=== PATIENT | male | born 1955 | race Caucasian/White ===

== ENCOUNTER 2018-04-02 09:26 | Inpatient (IN) | payer MEDICAID ==
[~2018-04-02] VITALS: Ht 172.7 cm; Wt 77.3 kg
[2018-04-02] MEDS ORDERED: NORVASC10 MG PO (09:31)
[2018-04-02] MEDS ORDERED: ZIAC 10-6.25 MG1 TAB PO (09:32)
[2018-04-02] MEDS ORDERED: CATAPRES0.2 MG PO (09:33)
--- NOTE | 2018-04-02 09:38 | NUR ---
PATIENT STATES HE TOOK HIS HTN MEDICATION @ 0800 THIS AM INSURANCE EXAMINER.
[2018-04-02 10:54] VITALS: BP 198/118
[2018-04-02 11:23] LABS: HEMATOCRIT 39.5 % (42.0-54.0); HEMOGLOBIN 13.8 g/dL (13.5-17.5); MCHC 34.9 g/dL (31.0-37.0); MCV 85.9 fL (80.0-100.0); MEAN PLATELET VOLUME 10.8 fL (7.4-10.4); PLATELET COUNT 316 10x3/uL (130-400); RDW 14.2 % (11.5-14.5); WBC 20.9 10x3/uL (4.8-10.8)
[2018-04-02 11:47] LABS: LYMPHOCYTES 8 % (15-50); MONOCYTES 16 % (2-11); NEUTROPHILS 75 % (40-80); PLATELET ESTIMATE NORMAL
[2018-04-02 11:48] LABS: HYPOCHROMASIA OCC; ROULEAUX OCC
[2018-04-02 12:05] LABS: ALBUMIN 2.9 g/dL (3.4-5.0); ANION GAP 12.9 mmol/L (8-16); BILIRUBIN - TOTAL 0.39 mg/dL (0.2-1.3); C-REACTIVE PROTEIN 7.9 mg/dL (0.0-0.9); CALCIUM 8.4 mg/dL (8.5-10.1); CARBON DIOXIDE 24.3 mmol/L (21.0-32.0); CREATININE - SERUM 1.1 mg/dL (0.6-1.3); POTASSIUM - SERUM 3.2 mmol/L (3.5-5.1); PROTEIN - SERUM 7.4 g/dL (6.4-8.2)
--- NOTE | 2018-04-02 12:16 | NUR ---
DIET TRAY AND SODA GIVEN. UNABLE TO ATTAIN IV ACCESS AT THIS TIME. WILL CONTINUE TO TRY.
[2018-04-02 13:12] LABS: UDS - AMPHET POSITIVE QUAL (NEGATIVE); UDS - BARB NEGATIVE QUAL (NEGATIVE); UDS - BENZO NEGATIVE QUAL (NEGATIVE); UDS - COCAINE NEGATIVE QUAL (NEGATIVE); UDS - OPIATE POSITIVE QUAL (NEGATIVE); UDS - PCP NEGATIVE QUAL (NEGATIVE); UDS - THC NEGATIVE QUAL (NEGATIVE)
--- NOTE | 2018-04-02 13:20 | NUR ---
PATIENT GIVEN MILK AND BLANKETS. NO NEEDS NOTED.
[2018-04-02 13:28] VITALS: BP 153/88
[2018-04-02 13:46] LABS: APPEARANCE CLEAR (CLEAR); BILIRUBIN NEGATIVE (NEGATIVE); COLOR YELLOW (YELLOW); EPITHELIAL CELLS OCC /hpf (0-5); GLUCOSE 250 mg/dL (NEGATIVE); KETONE NEGATIVE (NEGATIVE); NITRITE NEGATIVE (NEGATIVE); PROTEIN 1+ mg/dL (NEGATIVE); RED CELLS - URINE RARE /hpf (0-5)
[2018-04-02 13:47] LABS: BACTERIA FEW /hpf (NONE SEEN)
[2018-04-02 14:58] VITALS: BP 119/73
--- NOTE | 2018-04-02 15:20 | NUR ---
PT ARRIVED TO UNIT VIA WHEELCHAIR. PT CURRENTLY HAS NO IV DUE TO NO ONE BEING ABLE TO OBTAIN ACCESS. SX CONSULT PLACED FOR DR MENG. WILL FOLLOW UP.
[2018-04-02 16:52] VITALS: BP 151/99
[2018-04-02 17:28] VITALS: BMI 25.1
--- NOTE | 2018-04-02 18:44 | NUR ---
PT RESTING IN BED, EYES OPEN. NO C/O PAIN. NO S/S OF ACUTE DISTRESS NOTED. PT DENIES ANYTHING FURTHER AT THIS TIME. CALL LIGHT IN REACH. WILL CONTINUE TO MONITOR.
[2018-04-02 19:00] VITALS: BP 164/93
[2018-04-03] VITALS: BP 118/67
--- NOTE | 2018-04-03 01:12 | NUR ---
RECIEVED UP IN BED WITH EYES OPEN. OFF GOING REPORTED HE NEEDED AND IV. WHEN LOOKING AT HIS ARM HE STATED "YOUR NOT GOING TO TOUCHME WITH NO IV. THEY TRIED 6 TIMES IN ER." REPORTED THAT DR. MENG WILL DO CVL. WILL CONT POC.
[2018-04-03 03:00] VITALS: BP 117/72
[2018-04-03 09:37] VITALS: BP 124/75
--- NOTE | 2018-04-03 10:19 | NUR ---
PATIENT GAVE NUMBER OF HIS GIRLFRIEND TO BE CALLED, [phone], ATTEMPTED TO CALL NUMBER AND NUMBER IS BUSY.
--- NOTE | 2018-04-03 10:21 | NUR ---
SPOKE WITH DR. NELSON ABOUT PT REQUEST TO EITHER BE TRANSFERRED OUT TO ANOTHER HOSPITAL OR HE WANTS TO GO AMA. DR. NELSON STRONGLY ADVISES AGANIST LEAVING. CALLED DR. MENG ABOUT PENDING CVL PLACEMENT, HE HAS BEEN IN SURGERY ALL MORNING AND WILL PLACE CVL SOON POSSIBLE. PT IS AWARE AND IS STILL DISPLEASED WITH CARE. ENCOURAGED PT TO ALLOW ME TO DRESS HIS WOUND ON HIS LOWER LEG D/T LEAKAGE AND HE REFUSES. BED LOWERED AND LOCKED, CALL LIGHT WITHIN REACH.
--- NOTE | 2018-04-03 11:35 | NUR ---
CVL PLACED BY DR. MENG, BANANA BAG INFUSING WELL INITATION OF HEALTH AND SAFETY TRAINER MORPHINE. 2MG BOLUS GIVEN PER ORDER. DENIES ANY OTHER NEEDS OR DISCOMFORTS, BED LOWERED AND LOCKED, CALL LIGHT WITHIN REACH. CPOC
[2018-04-03 13:00] VITALS: BP 117/72
--- NOTE | 2018-04-03 13:00 | NUR ---
PLACED ON CONTACT ISOLATION FOR POSITIVE MRSA OF LEG WOUND.
[2018-04-03 15:12] VITALS: BP 117/72
[2018-04-03 19:00] VITALS: BP 163/94
--- NOTE | 2018-04-03 20:36 | NUR ---
PATIENT RESTING IN BED WITH NO S/S OF DISTRESS. ADMINISTERED MEDS PER ORDERS. PATIENT DENIES OTHER NEEDS AT THIS TIME. BED IN LOWEST POSITION AND CALL LIGHT WITHIN REACH. ENCOURAGED THE PATIENT TO CALL IF HE HAS NEEDS.
[2018-04-04] VITALS: BP 120/58
[2018-04-04 03:00] VITALS: BP 108/65
[2018-04-04 08:00] VITALS: BP 126/82
--- NOTE | 2018-04-04 08:00 | NUR ---
PT AOX4 RESP EVEN AND NONLABORED PT DENIES NEEDS AT THIS TIME IV TO RIGHT SUBCLAVIAN PATENT AND INTACT AT THIS TIME SRX2 BED AT LOWEST SETTING CALL LIGHT WITHIN REACH WILL CONTINUE TO MONITOR
[2018-04-04 10:09] LABS: BASOPHILS 0.2 % (0-2); EOSINOPHILS 1.7 % (0-7); HEMATOCRIT 32.2 % (42.0-54.0); IMMATURE GRANULOCYTES 0.3 % (0-5); LYMPHOCYTES 13.7 % (15-50); MCH 29.3 pg (26.0-34.0); MCHC 33.5 g/dL (31.0-37.0); MCV 87.3 fL (80.0-100.0); MEAN PLATELET VOLUME 11.6 fL (7.4-10.4); MONOCYTES 12.1 % (2-11); PLATELET COUNT 257 10x3/uL (130-400); RBC 3.69 10x6/uL (4.20-6.10); RDW 14.5 % (11.5-14.5)
[2018-04-04 10:25] LABS: HEMOGLOBIN 10.8 g/dL (13.5-17.5); WBC 9.1 10x3/uL (4.8-10.8)
[2018-04-04 10:44] LABS: ANION GAP 10.9 mmol/L (8-16); BILIRUBIN - TOTAL 0.13 mg/dL (0.2-1.3); CREATININE - SERUM 1.2 mg/dL (0.6-1.3); POTASSIUM - SERUM 3.9 mmol/L (3.5-5.1); PROTEIN - SERUM 5.9 g/dL (6.4-8.2)
[2018-04-04 12:00] VITALS: BP 121/82
[2018-04-04 13:08] LABS: % SATURATION 4 % (15-55); IRON 10 ug/dl (35-150); TOTAL IRON BIND CAPACITY 227 ug/dl (260-445); UNSAT IRON BIND CAPACITY 217 ug/dl (150-375)
[2018-04-04 16:00] VITALS: BP 134/83
[2018-04-04 20:00] VITALS: BP 123/84
--- NOTE | 2018-04-04 20:51 | NUR ---
SPOKE WITH DR. FLORES IN REGARDS TO PATIENT AND CONSULT. NOTIFIED DR. FLORES OF URGENT CONSULT PER DR AUGUSTINE AND THAT MRI WILL BE IN AT APROX 2129. ALSO REVIEWED VITALS AND SOME LABS.
[2018-04-05] VITALS (7 sets, daily range): BP systolic 104–139; BP diastolic 55–84
--- NOTE | 2018-04-05 06:00 | NUR ---
SPOKE WITH LUISA IN REGARDS TO PATIENT'S PAIN NOT BEING CONTROLLED. DISCUSSED OPTIONS WITH LUISA AND DECIDED ON DILAUDID CABLE COVERER FOR THE PATIENT. WHEN I ENTERED THE ROOM TO SET UP THE PATIENT'S CABLE COVERER, HE REFUSED AND STATED HIS PAIN MEDS WERE FINE THE WAY THAT THEY WERE. HE STATED THE I WAS JUST TRYING TO MAKE THINGS EASIER ON MYSELF. I EXPLAINED TO THE PATIENT THAT HE HAS CALLED MULTIPLE TIMES BEFORE HIS PAIN MED WAS DUE AND THAT IT MIGHT BE MORE EFFECTIVE IF HE REC'D A SMALLER DOSE OF PAIN MEDIATION EVERY 10 MINS RATHER THAN AN IV PUSH EVERY 4 HOURS. HE PROCEEDED TO TELL ME THAT I HAVE NOT GIVEN HIM PAIN MEDICATION ALL NIGHT LONG. I EXPLAINED TO THE PATIENT THAT HIS LAST DOSE OF DILAUDID WAS AT 0424 AND HIS LAST DOSE OF PERCOCET WAS AT 0522 THIS MORNING. THE PATIENT STATED "SHOW ME THE BANDAID ON MY BUTT IF YOU GAVE ME MY SHOT". I EXPLAINED TO THE PATIENT THAT HIS IV DILAUDID WAS GIVEN THROUGH HIS IV. THE PATIENT STATED THAT HE DID NOT HAVE HIS PAIN MEDICATION AND I CAN DO WHATEVER I WANT. I ATTEMPTED AGAIN TO EXPLAIN THE PATIENT'S OPTIONS TO HIM AND HE INTERUPTED ME AND TOLD ME TO DO WHATEVER I WANTED. ELMIRA SLOAN WAS AT BEDSIDE CHECKING THE PATIENT'S VITALS WHEN I ADMINISTERED THE 0424 DOSE OF DILAUDID.
[2018-04-05 06:37] LABS: BASOPHILS 0.3 % (0-2); EOSINOPHILS 1.8 % (0-7); HEMATOCRIT 33.4 % (42.0-54.0); HEMOGLOBIN 11.2 g/dL (13.5-17.5); IMMATURE GRANULOCYTES 0.4 % (0-5); LYMPHOCYTES 14.1 % (15-50); MCH 29.3 pg (26.0-34.0); MCHC 33.5 g/dL (31.0-37.0); MCV 87.4 fL (80.0-100.0); MEAN PLATELET VOLUME 11.3 fL (7.4-10.4); MONOCYTES 9.6 % (2-11); NEUTROPHILS 73.8 % (40-80); PLATELET COUNT 266 10x3/uL (130-400); RBC 3.82 10x6/uL (4.20-6.10); RDW 14.7 % (11.5-14.5); WBC 11.1 10x3/uL (4.8-10.8)
[2018-04-05 07:39] LABS: ALBUMIN 2.1 g/dL (3.4-5.0); ANION GAP 11.3 mmol/L (8-16); BILIRUBIN - TOTAL 0.15 mg/dL (0.2-1.3); CALCIUM 7.7 mg/dL (8.5-10.1); CARBON DIOXIDE 27.5 mmol/L (21.0-32.0); CREATININE - SERUM 1.3 mg/dL (0.6-1.3); POTASSIUM - SERUM 3.8 mmol/L (3.5-5.1); PROTEIN - SERUM 5.9 g/dL (6.4-8.2)
--- NOTE | 2018-04-05 07:53 | NUR ---
THE PATIENT IS ON ELECTROLYTE PROTOCOL, THE POTASSIUM IS WNL THIS MORNING. THE MAG AND PHOS HAVE NOT BEEN ORDERED/MONITORED THIS VIST
--- NOTE | 2018-04-05 09:52 | NUR ---
BARBARA IS RESTING WITH EYES CLOSED, SNORING. HOB UP AT 30 DEGREES. APPEARS TO BE PAINFREE. TAMICA GOODEN APN WAS IN TO SEE BARBARA AND MADE HIM NPO AT THIS TIME UNTIL SHE TALKS WITH DR FLORES. RIGHT LOWER LEG WITH ANGRY LOOKING OPEN WOUND TO CABRERA AREA. DRAINING FLUID. PATIENT IS IN ISOLATION.
--- NOTE | 2018-04-05 11:13 | NUR ---
CALLED AND SPOKE TO LUISA NURSE WITH DR AUGUSTINE. INFORMED HER OF THE MEDICATION BOTTLE THE PATIENT FELL ASLEEP HOLDING AND THE OTHER BOTTLE IN THE PATIENTS NIGHTSTAND OPENED DRAWER. THE BOTTLE PATIENT WAS HOLDING WAS BLUE AND LABELED BISOPROL FUM 10 MG WITH 12 WHITE PILLS INSIDE, THE OTHER WHITE BOTTLE HAS 2 ROUND, PINK PILLS INSIDE, THE BOTTLE IS LABELED PAIN RELIEVER, ACETAMINOPHEN. BRENDA, FROM THE PHARMACY IS TAKING THE MEDICATION BOTTLES TO THE PHARMACY. . CHARGE NURSE, KIRIT WAS NOTIFIED.
--- NOTE | 2018-04-05 11:34 | NUR ---
CALLED AND SPOKE WITH EDD IN THE PHARMACY, REQUESTING THE ZIAC THAT WAS DUE AT 0900
--- NOTE | 2018-04-05 11:56 | OP ---
PATIENT NAME: KELLI WARE MEDICAL RECORD: [id number] :59 LOCATION:D.M3 D.1204 ADMISSION DATE:04/02/18 SURGEON: BEAU MENG MD DATE OF OPERATION: 04/03/2018 PREOPERATIVE DIAGNOSES: 1. Need for IV access. 2. Right lower extremity cellulitis. 3. Chronic alcohol abuse. 4. Nicotine dependence. 5. Hypertension. POSTOPERATIVE DIAGNOSES: 1. Need for IV access. 2. Right lower extremity cellulitis. 3. Chronic alcohol abuse. 4. Nicotine dependence. 5. Hypertension. PROCEDURE: Right subclavian vein triple lumen central venous line placement. SURGEON: Beau Meng MD REPORT OF PROCEDURE: The patient's right chest was prepped and draped in sterile fashion. A total of 5 cc of 1% lidocaine was infused into the subcutaneous tissues. A needle was used to cannulate the right subclavian vein and a guidewire was advanced with ease. Over this wire, dilator was placed followed by the triple lumen catheter. The catheter aspirated nonpulsatile dark blood and flushed easily in all 3 ports. This was sutured into place with 3-0 silk ties and dressed appropriately. COMPLICATIONS: None. CONDITION: Stable. ANESTHESIA: Local. BLOOD LOSS: Minimal. TRANSINT:[id number] Voice Confirmation ID: [id number] DOCUMENT ID: [id number] BEAU MENG MD at 1156 CC: [id number] DICTATION DATE: 04/03/18 1113 CREDIT RISK REVIEW OFFICER: 04/03/18 1343 ADM IN [place] [id number] [place] [address]
--- NOTE | 2018-04-05 13:29 | EC ---
PATIENT:KELLI WARE DATE OF SERVICE: 04/02/18 SEX: M MEDICAL RECORD: [id number] DATE OF : [birth year] LOCATION:D.M3 D.120 AGE OF PATIENT: 63 ADMISSION DATE: 04/02/18 REFERRING PHYSICIAN: INTERPRETING PHYSICIAN: MALA HERBERT MD ECHOCARDIOGRAM REPORT ECHO CHARGES 4 ECHO COMPLETE Date: 04/04/18 CLINICAL DIAGNOSIS: IV DRUG USE - R/O VEGETATION ECHOCARDIOGRAPHIC MEASUREMENTS (adult normal given) AC root (d.<3.7cm) 3.3 cm LV Septum d (<1.2 cm> 1.4 cm Valve Excursion 1.8 cm LV Septum (systole) 2.1 cm Left Atria (s.<4.0cm> 4.6 cm LVPW d(<1.2cm) 1.4 cm RV (d.<2.3cm) 2.7 cm LVPW (sytole) 2.2 cm LV diastole(<5.6CM) 5.5 cm MV E-F(>70mm/sec) cm LV systole 3.4 cm LVOT Diameter 2.0 cm MV exc.(>10mm) cm Est.ejection fraction (50-75%) % DOPPLER: LVIT cm/sec A 42.0 cm/sec E 101 cm/sec LA cm/sec RVSP 60.3 mmHg LVOT 128 cm/sec AOP1/2T m/s Asc. Ao 145 cm/sec RVOT 80.0 cm/sec RA cm/sec PA 88.0 cm/sec AV Gradient Peak 8.4 mmHg AV Mean 4.9 mmHg AV Area 2.6 cm MV Gradient Peak 6.0 mmHg MV Mean 2.0 mmHg MV Area cm COMMENTS: Recycling Center Operator: James AYALA Psychologists: 2 Dr. Patel TAPE# PACS Pericardial Effusion N DATE OF SERVICE: 04/04/2018 PROCEDURE: Echocardiogram. FINDINGS: 1. Left ventricular chamber size is within normal limits. Left ventricular systolic function is normal. Overall ejection fraction estimated at 60%. 2. Left atrium is enlarged at 4.6 cm. Right atrium and right ventricle chamber sizes are within normal limits. 3. Valvular structures have normal structure and motion. ECHOCARDIOGRAM REPORT [id number] KELLI WARE 4. Doppler interrogation reveals mild mitral regurgitation, [id number] tricuspid regurgitation, no other valvular insufficiency or stenosis. Pulmonary systolic pressure is elevated estimated 60 mmHg. 5. No evidence of pericardial effusion or left ventricular thrombus. 6. No evidence of vegetative endocarditis. TRANSINT:[id number] Voice Confirmation ID: [id number] DOCUMENT ID: [id number] MALA HERBERT MD at 1329 CC: [id number] DICTATION DATE: 04/05/18 1218 MATERIAL PLANNING ANALYST: 04/05/18 1243 ADM IN [facility] [address] [id number]
--- NOTE | 2018-04-05 15:55 | NUR ---
SURGERY HERE TO GET PATIENT, CHART WITH THE PATIENT. [facility] FOR PRE OP. PANCHO, FROM SURG, CALLED AND REPORTED THIS TO SURGERY.
--- NOTE | 2018-04-05 18:06 | NUR ---
RECIEVED PATIENT VIA STRETCHER, TRANSFERRED TO HIS FRESH BED, VITALS TAKEN, PATIENT RESTING COMFORTABLE
--- NOTE | 2018-04-05 19:33 | NUR ---
PATIENT RESTING IN BED WITH EYES CLOSED AND NO S/S OF DISTRESS. BED IN LOWEST POSITION AND CALL LIGHT WITHIN REACH. WILL CONTINUE TO MONITOR.
[2018-04-06 04:00] VITALS: BP 113/65
[2018-04-06 05:50] LABS: BASOPHILS 0.1 % (0-2); EOSINOPHILS 1.8 % (0-7); HEMATOCRIT 31.2 % (42.0-54.0); HEMOGLOBIN 10.5 g/dL (13.5-17.5); IMMATURE GRANULOCYTES 0.3 % (0-5); LYMPHOCYTES 10.7 % (15-50); MCH 29.1 pg (26.0-34.0); MCHC 33.7 g/dL (31.0-37.0); MCV 86.4 fL (80.0-100.0); MEAN PLATELET VOLUME 11.7 fL (7.4-10.4); MONOCYTES 10.1 % (2-11); PLATELET COUNT 293 10x3/uL (130-400); RBC 3.61 10x6/uL (4.20-6.10); RDW 14.8 % (11.5-14.5); WBC 11.4 10x3/uL (4.8-10.8)
[2018-04-06 06:13] LABS: ANION GAP 12.7 mmol/L (8-16); BILIRUBIN - TOTAL 0.22 mg/dL (0.2-1.3); CALCIUM 8.1 mg/dL (8.5-10.1); CARBON DIOXIDE 25.3 mmol/L (21.0-32.0); CREATININE - SERUM 1.2 mg/dL (0.6-1.3); PROTEIN - SERUM 6.4 g/dL (6.4-8.2)
[2018-04-06 07:54] VITALS: BP 105/58
--- NOTE | 2018-04-06 08:40 | NUR ---
PT PULLED OF PAD THAT WAS ATTACHED TO WOUND VAC DRESSING. PT STATED THAT HE DID NOT KNOW HOW IT CAME OFF. INSTRUCTED PT THAT HE NEEDS TO BE CAREFUL WHEN HE GETS UP TO THE BATHROOM. CALLED KIRIT WOUND CARE NURSE. KIRIT STATED THAT SHE WOULD COME AND FIX IT. PT DENIES ANY OTHER NEEDS AT THIS TIME. CALL LIGHT IN REACH, NAD NOTED, WILL CONTINUE PLAN OF CARE.
--- NOTE | 2018-04-06 10:04 | NUR ---
ADMINISTERED 2MG OF DILAUDID FOR PAIN LEVEL OF 8/10, ALSO GAVE AM MEDS AT THIS TIME. WOUND VAC FIXED BY [facility] WOUND CARE NURSE. PT DENIES ANY NEEDS AT THIS TIME. CALL LIGHT IN REACH, NAD NOTED, WILL CONTINUE TO MONITOR.
--- NOTE | 2018-04-06 10:37 | NUR ---
Pt pulled off TRAC pad that was attached to wound vac dressing. Applied new TRAC pad and attempted to instruct pt on ambulation with wound vac, dressing changes and purpose of wound vac. He refused to interact and just pulled cover over his head and stated he wanted another blanket.
[2018-04-06 11:46] VITALS: BP 129/76
--- NOTE | 2018-04-06 12:30 | NUR ---
GAVE PERCOCET FOR PAIN LEVEL OF 7/10. PT ASKING WHEN HE CAN HAVE HIS PAIN SHOT INFOMRED HIM THAT HE CANNOT HAVE UNTIL AROUND 2. PT ALSO ASKING FOR SODA AND BLANKET,W ILL PROVIDE PT WITH SODA AND BLANKET. CALEB BLOOD FROM CVL FOR PT'S TROUGH. PT DENIES ANY OTHER NEEDS AT THIS TIME. CALL LIGHT IN REACH, NAD NOTED, WILL CONTINUE TO MONITOR.
--- NOTE | 2018-04-06 15:00 | NUR ---
INFORMED ANNETTE WITH RESPIRATORY THAT I HAD TO UP PT'S O2 TO 6L TO GET IT UP TO 90%, ASKED IF SHE COULD CHECK TO SEE IF HE QUALIFIED FOR A HIGH FLOW NC.
[2018-04-06 15:46] VITALS: BP 110/61
--- NOTE | 2018-04-06 18:25 | NUR ---
PT ASKING FOR PERCOCET. WENT INTO PT'S ROOM TO GIVE HIM THE PERCOCET, PT REFUSED TO TAKE THE PERCOCET, STATED THAT HE WANTS THE DILAUDID, INFORMED PT THAT I CANNOT GIVE HIM THE DILAUID RIGHT NOW BECAUSE ITS NOT TIME AND HIS O2 HAS BEEN RUNNING LOW AND WE DONT WANT IT TO GET ANY LOWER. INFORMED PT THAT I WOULD INFORM SECURED ENTRANCE MONITOR NURSE AND SEE IF SHE WANTS TO GIVE HIM THE DILAUDID.
--- NOTE | 2018-04-06 19:34 | NUR ---
PT YELLING INTO HALLWAY, SAYING HE IS AN HOUR IN A HALF LATE FOR INJECTION. STATING HE WANTS PAIN MEDS, WONT KEEP OXYGEN ON AND IS YELLING AT THE ORIENTEE ABOUT HOW HE WANTS HIS MEDS NOW. WILL CHECK O2 SAT AND CHECK ORDERS FOR PAIN MED. PT HAS NO S/S OF DISTRESS. ASKED PT TO KEEP OXYGEN ON . PT IS NONCOMPLIANT. WILL CONTINUE TO WORK WITH PT.
--- NOTE | 2018-04-06 19:55 | NUR ---
CHECKING PT BP AND O2. PT UPSET. SAYING DR AUGUSTINE SAID HE CAN HAVE THE DILAUDID AND PERC AT THE SAME TIME. I INFORMED PT I CANNOT DO THAT, DR AUGUSTINE SPOKE TO PT AND PT NOW VERBALIZED UNDERSTANDING. WILL GIVE PAIN MED AND CONTINUE TO MONITOR
[2018-04-06 20:19] VITALS: BP 183/101
--- NOTE | 2018-04-06 22:19 | NUR ---
PT YELLING OUT ABOUT GETTING HIS PAIN PILL, PT STATES HIS PAIN IS NOT RESOLVED. PT CLOSING EYES AND SEEMS RELAXED. DR AUGUSTINE STATED IF PAIN IS NOT BETTER PT CAN HAVE PERC 2 HOURS AFTER DILAUDID. PT GIVEN PERC. ASKED PT TO KEEP O2 ON. PT O2 SAT IS 86 WITHOUT OXYGEN. PT HAS NO S/S OF DISTRESS. BEDLOW AND CALL LIGHT IN REACH. WILL CONTINUE TO MONITOR
--- NOTE | 2018-04-07 01:17 | NUR ---
PT ASKING FOR DILAUDID, WENT IN ROOM TO ASSESS PT PAIN AND PT WAS SLEEPING. DID NOT WAKE UP WHEN I WALKED INTO ROOM. PT RESP EVEN AND UNLABORED. HAS O2 ON AT THIS TIME. BEDLOW AND CALL LIGHT IN REACH. NOT GOING TO WAKE PT UP TO GIVE HIM THE PAIN MEDS. WILL CONTINUE TO MONITOR
[2018-04-07 06:00] VITALS: BP 162/90
--- NOTE | 2018-04-07 06:18 | NUR ---
PT ASKED FOR PERCOCET BUT THAN STATED NO I WANT THE IV. EXPLAINED PT PLAN FOR PAIN MANAGEMENT. PT DID NOT LISTEN. PT FALLING ASLEEP WHILE I AM GETTING MEDS READY AND SETTING UP TO DRAW BLOOD. I HAVE NOT GAVE THE DILAUDID YET AT THIS TIME. EXPLAINED TO LUISA ZHENG [facility] THAT PT SLEEPING AND EXPRESSING A SEEKING BEHAVIOR. NO ORDERS CHANGED. PT HAS 3L OXY. PT WOULD NOT WEAR IT ANY HIGHER. STATES HE WILL TRY IF I TURN IT DOWN. PT USUALY HAS MEDICAL ITEMS. ( NC, IV TUBING BP CUFFS ECT. ON FLOOR) PT NOT CARING WHAT EDUCATION I GIVE HIM ONLY ASKS FOR HIS SHOT. PT HAS NO S/S OF DISTRESS. BEDLOW AND CALL LIGHT IN REACH. WILL CPOC
[2018-04-07 07:51] LABS: BASOPHILS 0.1 % (0-2); EOSINOPHILS 1.9 % (0-7); IMMATURE GRANULOCYTES 0.4 % (0-5); LYMPHOCYTES 12.4 % (15-50); MCH 28.8 pg (26.0-34.0); MCHC 33.3 g/dL (31.0-37.0); MCV 86.5 fL (80.0-100.0); MEAN PLATELET VOLUME 11.6 fL (7.4-10.4); MONOCYTES 13.3 % (2-11); NEUTROPHILS 71.9 % (40-80); RBC 3.12 10x6/uL (4.20-6.10); RDW 15.1 % (11.5-14.5); WBC 13.5 10x3/uL (4.8-10.8)
[2018-04-07 08:12] LABS: PLATELET COUNT 386 10x3/uL (130-400)
[2018-04-07 08:21] LABS: ALKALINE PHOSPHATASE 79 U/L (46-116); ALT (SGPT) 17 U/L (10-68); BILIRUBIN - TOTAL 0.25 mg/dL (0.2-1.3); CALCIUM 8.9 mg/dL (8.5-10.1); CARBON DIOXIDE 28.4 mmol/L (21.0-32.0); CHLORIDE - SERUM 98 mmol/L (98-107); GLUCOSE 97 mg/dL (74-106); POTASSIUM - SERUM 3.9 mmol/L (3.5-5.1); PROTEIN - SERUM 6.8 g/dL (6.4-8.2); SODIUM 136 mmol/L (136-145); eGFR NON AFRICAN AMERICAN 81 mL/min (90-120)
[2018-04-07 08:24] LABS: CALC OSMOLALITY 271 mosm/kg (275-300); UREA NITROGEN 13 mg/dL (7-18)
[2018-04-07 09:46] VITALS: BP 161/97
--- NOTE | 2018-04-07 11:37 | NUR ---
PT LYING IN BED ASLEEP, EASILY AWAKENED TO TAKE MEDS AND ALWAYS ASKS IF IT IS TIME FOR PAIN MEDICINE,TAMICA WITH ORTHO CAME TO SEE PT, NO NEEDS VOICED WILL CONTINUE WITH PLAN OF CARE
[2018-04-07 12:22] VITALS: BP 142/90
[2018-04-07 13:00] VITALS: Ht 172.7 cm; Wt 77.3 kg
[2018-04-07 17:27] VITALS: BP 135/78
--- NOTE | 2018-04-07 18:33 | NUR ---
PT RESTINTG IN BED, IRON INFUSING AT THIS TIME. PT DENIES NEEDS. WCTM.
--- NOTE | 2018-04-07 19:36 | NUR ---
BEDSIDE SHIFT REPORT RECEIVED. PT IS ASLEEP. NO S/S OF DISTRESS, MVI INFUSING ORDERED AT 125 TO RIGHT CVL. PT BEDLOW AND CALL LIGHT IN REACH. WOUND VAC NOTED SUCTION INTACT. NAME AND DATE PLACED ON BOARD. WILL CPOC
--- NOTE | 2018-04-07 20:19 | NUR ---
PT GIVEN DILAUDID. PAIN 10/29, PT NOT GIVEN BP MEDS AT THIS TIME WORRIED HE WILL BOTTOM OUT AND NOT BE ABLE TO GET DILAUDID. WILL CONTINUE TO MONITOR BP. PT BEDLOW AND CALL LIGHT IN REACH. PT O2 OFF AGAIN. 87% ROOM AIR. PLACING O2 ON PT NOW 3L OXY. O2 NOW 92% WILL CONTINUE TO MONITOR
[2018-04-07 20:21] VITALS: BP 126/87
--- NOTE | 2018-04-07 23:39 | NUR ---
PT GIVEN A PERCOCET. SAID IT SHOULD BE DILAUDID FIRST. SAID I GAVE THE DILAUDID AROUND 2030 AND HE HAS NOT HAD HIS PERCOCET AND ITS NOT TIME FOR DILAUDID. HE ASKED WHAT TIME HE CAN HAVE IT I TOLD HIM AROUND 0030. HE SAID SO BRING ME THE DILAUDID THEN. I STATED WELL IT WILL BE AFTER 0100 FOR THE DILAUDID SINCE HE IS TAKING THE PERCOCET, HE TOOK IT BACK OUT OF HIS MOUTH. SPOKE WITH PT ABOUT THE PERCOCET BEING HIS PAIN MED AND DILAUDID BEING FOR BREAKTHROUGH. THAT IT WILL TRULY HELP HIS PAIN MORE IF HE TAKES THEM ALTERNATING. PT THAN TOOK THE PERCOCET. PT GIVEN HIS O2 BECAUSE IT WAS ON THE FLOOR AGAIN. PT DENIES ANY OTHER NEEDS. NO S/S OF DISTRESS. WILL CPOC
--- NOTE | 2018-04-08 01:18 | NUR ---
PT COMPLAINING ABOUT PAIN IN RIGHT LOWER LEG. DILAUDID GIVEN ORDERED. PT INSTRUCTED TO KEEP O2 ON PT VERBLIZED UNDERSTANDING. PT HAD O2 OFF AGAIN. PT BEDLOW AND CALL LIGHT IN REACH. WILL CPOC
[2018-04-08 01:23] VITALS: BP 137/87
--- NOTE | 2018-04-08 01:30 | NUR ---
TURNED OXYMIZER UP TO 4 AND THAN 6 AND THAN 10 O2 IS STILL LOW,84% PAGING RESP NOW
--- NOTE | 2018-04-08 02:06 | NUR ---
RESP CAME AND ASSESSED PT. ADDED HUMIDITY TO OXYMIZER AND TURNED IT TO 11, PT AT 91% PT ASLEEP. RESP EVEN AND UNLABORED. BEDLOW AND CALL LIGHT IN REACH. WILL CPOC
--- NOTE | 2018-04-08 05:37 | NUR ---
PT COMPLAINS OF PAIN. DILAUDID GIVEN. PT SHAKING AND COMPLAINING OF BEING COLD. SHAKING SEEMS FORCED, CHECKED TEMP IT IS 100.1, PT HAS 2 BLANKETS ON AND IS COMPLAINING ABOUT WANTING MORE. EXPLAINED TO PT THAT HE HAS 2 AND TO MANY BLANKETS WILL INCREASE HIS TEMP TO MUCH. PT VERBALIZED UNDERSTANDING. PT DENIES ANY OTHER NEEDS. NO S/S OF DISTERSS. WILL CPOC
[2018-04-08 05:39] VITALS: BP 182/109
--- NOTE | 2018-04-08 05:46 | NUR ---
PT BP IS ELEVATED 182/109 CLONIDINE GIVEN EARLY. PT DENIES ANY OTHER NEEDS. WILL CONTINUE TO MONITOR BP AND TEMP. NO S/S OF DISTRESS. WILL CPOC
--- NOTE | 2018-04-08 06:11 | NUR ---
PT IS NOW RESTING IN BED CALM, NOT SHAKING, OR COMPLAINING. PT STOP SHAKING FROM BEING COLD SOON I GAVE DILAUDID. PT HAS NO S/S OF DISTRESS. BEDLOW AND CALL LIGHT IN REACH. WILL CPOC
[2018-04-08 06:47] LABS: ANION GAP 12.3 mmol/L (8-16); CALCIUM 8.8 mg/dL (8.5-10.1); CARBON DIOXIDE 26.7 mmol/L (21.0-32.0); CREATININE - SERUM 1.2 mg/dL (0.6-1.3)
[2018-04-08 07:08] LABS: BASOPHILS 0.2 % (0-2); EOSINOPHILS 3.7 % (0-7); IMMATURE GRANULOCYTES 0.6 % (0-5); LYMPHOCYTES 10.1 % (15-50); MCH 28.9 pg (26.0-34.0); MCHC 32.9 g/dL (31.0-37.0); MCV 87.8 fL (80.0-100.0); MEAN PLATELET VOLUME 11.8 fL (7.4-10.4); MONOCYTES 4.5 % (2-11); NEUTROPHILS 80.9 % (40-80); PLATELET COUNT 371 10x3/uL (130-400); RDW 15.2 % (11.5-14.5)
[2018-04-08 07:09] LABS: RBC 4.26 10x6/uL (4.20-6.10)
[2018-04-08 07:10] LABS: HEMATOCRIT 37.4 % (42.0-54.0); HEMOGLOBIN 12.3 g/dL (13.5-17.5)
--- NOTE | 2018-04-08 07:25 | NUR ---
RECIEVED PT THIS MORNING PT YELLING OUT THE ROOM "I WANT MY PAIN SHOT RIGHT NOW" I WENT AND EXPLAINED TO PT THAT THE PEDIATRIC RADIOLOGIST NURSE WAS ON THE PHONE WITH THE DR. BECAUSE HIS PAIN MEDS HAD FALLEN OFF OF EMAR, PT STATED " HE WILL GET UP AND WALK OUT AND GET HIS OWN PAIN MEDS" I REEXPLAINED TO THE PT THAT I WOULD CHECK ON HIS PAIN MEDS CL IN REACH
--- NOTE | 2018-04-08 07:42 | NUR ---
SPOKE WITH DR AUGUSTINE REGARDING DILAUDID FALLING OFF OF EMAR DR AUGUSTINE STATED TO RESTART 2MG DILAUDID Q4H FOR BREAKTHROUGH PAIN PLACE AN ORDER FOR 25MCG FENTYAL PATCH AND CHANGE PERCOCET TO Q4H 10MG
[2018-04-08 08:00] VITALS: BP 154/97
--- NOTE | 2018-04-08 09:30 | NUR ---
PT WAS GIVEN A PAIN PILL, PT WAS NOT PLEASED I EXPLAINED TO HIM IT WAS NOT TIME FOR A PAIN SHOOT AND THAT THE PILL WAS ALL I HAD AT THAT TIME CL IN REACH
--- NOTE | 2018-04-08 09:45 | NUR ---
PT YELLING OUT OF ROOM STATING " NOBODY GAVE ME ANYTHING FOR PAIN" I EXPLAINED TO THE PT THAT I DID GIVE HIM A PAIN PILL 1 HOUR AGO PT STATES " YOUR JUST LYING YOU DIDNT GIVE ME ANYTHING FOR PAIN CALL THE DR" I PULLED UP THE PATIENTS EMAR AND TRIED TO SHOW HIM WHERE IT WAS DOCUMENTED IT WAS GIVEN HE REFUSED TO LOOK CL IN REACH
--- NOTE | 2018-04-08 09:52 | NUR ---
REQUESTED AND GIVEN 2MG DILAUDID SLOW IVP FOR C/O RIGHT LEG PAIN LEVEL 9. O2 SATS UP TO 94 ON 3LNC. DENIES NEEDS. AGREED FOR WOUND CARE NURSE TO COME BACK AND REPLACE WOUND VAC. WILL MONITOR.
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
--- NOTE | 2018-04-08 11:00 | NUR ---
PT WALKING OUT OF ROOM STATING "HE WANTED A PAIN SHOOT BECAUSE HE NEVER GOT ONE" PT GOT A PAIN SHOOT ABOUT 1030 I TOLD THE PATIENT HE HAD A PAIN SHOT HE REFUSED TO LISTEN PT CUT HIS IV LINE TO GET OUTSIDE THE ROOM THEN SAT IN A CHAIR OUTSIDE THE ROOM AND COMPLAINED OF CHEST PAIN VS WHERE LENA AND WE ORDRED AN EGD STAT THE OUTCOME WAS NORMAL O2 STAT WAS LOW AT 82% PT IS NONCOMPLAINT WITH WEARING 11L OF O2 GOT PT BACK IN ROOM AND PUT O2 BACK ON PT AND O2 STAT CAME BACK UP TO 94% CL IN REACH
[2018-04-08 11:53] VITALS: BP 119/69
--- NOTE | 2018-04-08 12:35 | MORECARE ---
CASE MANAGEMENT DISCHARGE SUMMARY PATIENT: KELLI WARE UNIT: [id number] ADM DATE: 04/02/18 AGE: 63 : 59 SEX: M ROOM/BED: D.1204 AUTHOR: WINNIE MALDONADO PHYSICIAN: REFERRING PHYSICIAN: JANE NELSON MD DATE OF SERVICE: 04/08/18 Discharge Plan Patient Name: KELLI WARE [facility] : 1955 Planned Disposition: Anticipated Discharge Date: Discharge Date: Expected LOS: Initial Reviewer: [email or web address] Initial Review Date: 04/02/2018 Generated: 04/08/18 1:34 pm DCPIA - Discharge Planning Initial Assessment Updated by [email or web address]: Kateryna Hinson on 04/08/18 12:34 pm * Is the patient Alert and Oriented? Yes * PCP DANIELA * Pharmacy [facility] [address] * Preadmission Environment Homeless * ADLs Independent * Equipment None * List name and contact numbers for known caregivers / representatives who currently or will assist patient after discharge: FOREIGN SOLORZANO, FRIEND, * Community resources currently utilized None * Has this patient been hospitalized within the prior 30 days at any hospital? No Patient Name: KELLI WARE Page [phone] at 1235 All edits/amendments must be made on the electronic document DICTATION DATE: 04/08/18 1234 AUDIT REVIEWER: MARIAN 04/08/18 1234 RPT#: [id number] DC DATE: STATUS: ADM IN [facility] [address] [place] [address] END OF REPORT
--- NOTE | 2018-04-08 12:42 | MORECARE ---
CASE MANAGEMENT DISCHARGE SUMMARY PATIENT: KELLI WARE UNIT: [id number] ADM DATE: 04/02/18 AGE: 63 : 59 SEX: M ROOM/BED: D.1204 AUTHOR: WINNIE MALDONADO PHYSICIAN: REFERRING PHYSICIAN: JANE NELSON MD DATE OF SERVICE: 04/08/18 Discharge Plan Patient Name: KELLI WARE Facility: [facility]:[place] : 1955 Planned Disposition: Anticipated Discharge Date: Discharge Date: Expected LOS: Initial Reviewer: [email or web address] Initial Review Date: 04/02/2018 Generated: 04/08/18 1:42 pm Comments DCP- Discharge Planning Updated by [email or web address]: Kateryna Hinson on 04/08/18 11:[address] Patient Name: KELLI WARE Admission Status: ER Accout number: [id number] Admission Date: 04-02-2018 : 1955 Admission Diagnosis:CELLULITIS OF RIGHT LOWER LIMB Attending: JANE NELSON Current LOS: 6 Anticipated DC Date: Planned Disposition: Primary Insurance: MEDICAID [place] Discharge Planning Comments: CM SPOKE WITH PATIENT OVER PHONE ABOUT DC PLANNING. PATIENT STATES IS HOMELESS AND PLANS TO DISCHARGE TO HIS ORIGINAL ENVIRONMENT. STATES ALREADY KNOWS THE HOMELESS SHELTERS AND DOESN'T NEED MORE INFORMATION ON THEM. CM SPOKE TO NURSE AND WOUND VAC IS BEING REMOVED TODAY. CM WILL FOLLOW AND ASSIST NEEDED WITH DC PLANNING/NEEDS. Corporate General Manager: Kateryna Hinson DCPIA - Discharge Planning Initial Assessment Updated by [id number]: Kateryna Hinson on 04/08/18 12:34 pm * Is the patient Alert and Oriented? Yes * PCP DANIELA * Pharmacy [facility] [address] * Preadmission Environment Homeless * ADLs Independent * Equipment None * List name and contact numbers for known caregivers / representatives who currently or will assist patient after discharge: FOREIGN CHINER, FRIEND, * Community resources currently utilized None * Has this patient been hospitalized within the prior 30 days at any hospital? No Last DP export: 04/08/18 11:35 a Patient Name: KELLI WARE Page [phone] at 1242 All edits/amendments must be made on the electronic document DICTATION DATE: 04/08/181241 VOCAL ARTIST: MARIAN 04/08/18 1242 RPT#: [id number] [place] DATE: STATUS: ADM IN [facility] [address] [place] [address] END OF REPORT
--- NOTE | 2018-04-08 14:28 | OP ---
PATIENT NAME: KELLI WARE MEDICAL RECORD: [id number] :59 LOCATION:D.M3 D.1204 ADMISSION DATE:04/02/18 SURGEON: DEVORAH FLORES MD DATE OF OPERATION: 04/04/2018 PREOPERATIVE DIAGNOSIS: Possible osteomyelitis with infection of the right anterior medial tibia. POSTOPERATIVE DIAGNOSIS: Possible osteomyelitis with infection of the right anterior medial tibia. PROCEDURES: 1. Excisional debridement of abscess, right anterior medial tibia. 2. Application of wound VAC. SURGEON: Devorah Flores MD METAL RECLAMATION KETTLE TENDER: None. INTRAOPERATIVE COMPLICATIONS: None. SUMMARY OF PATHOLOGIC FINDINGS: The patient's wound did have an abscess that tracked, it was approximately 10 cm x 2 cm x 2 cm deep. It went down to the fascia, not into the muscle, but at no point did I see any evidence of osteomyelitis. Cultures were taken. OPERATIVE SUMMARY IN DETAIL: After obtaining the appropriate preoperative orthopedic surgery consent as well as anesthetic consultation, evaluation and clearance, the patient was brought to the operating table and placed on operating table in supine position. After general anesthesia was administered, the patient's right lower extremity was prepped and draped in routine sterile fashion. A combination of a scalpel as well as a curettage and rongeur were utilized to debride skin, subcutaneous tissue, portions of fat and fascia, aggregated a total of 40 cm. This was then copiously irrigated after all good viable appearing tissue was noted. The silver sponge was cut to wound VAC specifications as above, placed in a 125-mm continuous suction at medium intensity. The patient was then awakened and taken to recovery room in stable condition. All final needle and sponge counts were correct. TRANSINT:[id number] Voice Confirmation ID: [id number] DOCUMENT ID: [id number] DEVORAH FLORES MD at 1428 CC: [id number] DICTATION DATE: 04/08/18 1104 PERSONAL CARE HOME ADMINISTRATOR: 04/08/18 1200 ADM IN [id number] [place] [address]
[2018-04-08 16:00] VITALS: BP 117/68
--- NOTE | 2018-04-08 18:45 | NUR ---
PT RESTING QUIETLY IN BED NO SIGNS OF DISTRESS NOTED CL IN REACH
[2018-04-08 20:00] VITALS: BP 125/79
[2018-04-09] VITALS: BP 114/77
--- NOTE | 2018-04-09 01:29 | NUR ---
PT HAS A HISTORY OF CLAIMING NURSES DID NOT GIVE HIM PAIN MEDS WHEN HE WANTS MORE. DURING THIS SHIFT THERE HAS BEEN A SECOND WITNESS TO MAKE SURE AND COVER THIS PROBLEM.
[2018-04-09 04:00] VITALS: BP 112/76
--- NOTE | 2018-04-09 05:03 | NUR ---
PT'S O2 IS 86 AND HE REFUSES TO PUT O2 ON. HE WILL COME UP RAPIDLY WITH THE O2 BUT IS NOT COOPERATING WITH THIS MATTER. WILL TRY TO PUT ON AFTER HE GOES TO SLEEP HE FIRST ASKED FOR ATIVAN BEFORE HE REFUSED TO PUT ON O2.
[2018-04-09] MEDS ORDERED: OXYCODONE-APAP1 TAB PO (09:19)
--- NOTE | 2018-04-09 13:28 | NUR ---
CONTACT ISOLATION PRECAUTIONS IN PLACE. RESTING QUIETLY WITH EYES CLOSED.
--- NOTE | 2018-04-09 19:32 | NUR ---
BINH DAVEY AT BEDSIDE. WILL CONTINUE TO MONITOR
--- NOTE | 2018-04-09 19:36 | NUR ---
WET TO DRY DRESSING CHANGED ON RIGHT LOWER LEG. DAKIN'S SOLUTION USED WITH GAUZE, WRAPPED WITH CURLEX AND TAPED WITH MEDIPORE TAPE. PATIENT TOLERATED WELL.
[2018-04-09 19:39] VITALS: BP 116/76
--- NOTE | 2018-04-09 20:36 | NUR ---
PATIENT REQUESTED HIS DILAUDID WITH HIS OTHER MEDS. I EXPLAINED TO THE PATIENT THAT THE PREVIOUS NURSE GAVE HIS DILAUDID AT 1727. THE PATIENT STATED SHE HAD NOT GIVEN HIM HIS PAIN MEDICATION. THE PATIENT INSISTED HE HAD NOT REC'D HIS PAIN MEDICATION. I EXPLAINED TO THE PATIENT THAT HE HAS COMPLAINED MANY TIMES DURING THIS HOSPITALIZATION THAT SEVERAL NURSES WERE NOT GIVING HIM HIS PAIN MEDICATION. I TOLD HIM THAT HIS PAIN MEDICATION WAS PULLED, DOCUMENTED, AND ADMINISTERED AND THAT IF HE FELT THAT HE DID NOT RECEIVE IT HE COULD CALL THE RN PRIOR AUTHORIZATION AT EXT [phone].
[2018-04-09 23:31] VITALS: BP 123/73
--- NOTE | 2018-04-09 23:33 | NUR ---
ADMINISTERED DILAUDID PER PATIENT'S REQUEST. SUSAN KIMBALL WITNESSED. WROTE THE NEXT DOSE ON PATIENT'S WHITE BOARD.
--- NOTE | 2018-04-10 03:35 | NUR ---
PATIENT REQUESTING PAIN MEDICATION. EXPLAINED TO THE PATIENT THAT HIS BP IS LOW AT THIS TIME AND I CANNOT GIVE HIM DILAUDID BECAUSE IT WILL DROP IT LOWER. THE PATIENT IS AGAIN CLAIMING THAT NURSES ARE NOT GIVING HIM PAIN MEDS WHEN HE REQUESTS THEM. I EXPLAINED TO THE PATIENT THAT THE PAIN MEDICATION IS SCANNED IN THE ROOM IN FRONT OF HIM AND ADMINISTERED EACH TIME. I WENT OVER ALL OF THE TIMES THROUGHOUT THE LAST 24 HOURS THAT HE HAS REC'D PAIN MEDICATION AND BLOOD PRESSURE MEDICATION PER HIS REQUEST. JIGAR RN AND LICHA KU WERE AT BEDSIDE. JIGAR AND I EXPLAINED TO THE PATIENT THAT HE SEEMS MORE CONFUSED THAN BEFORE, THAT HE IS FORGETTING WHEN PAIN MEDICATIONS ARE GIVEN, AND THAT I WILL PASS IN REPORT TODAY FOR THE DAY SHIFT NURSE TO DISCUSS HIS PAIN MEDICATIONS WITH THE DOCTORS WHEN THEY COME IN. I ALSO TOLD THE PATIENT THAT WE WILL RECHECK HIS BLOOD PRESSURE IN ABOUT 45 MINS TO SEE WHERE IT IS. THE PATIENT REQUESTED COKE AND COFFEE TO BRING HIS BLOOD PRESSURE UP. WHEN I WENT BACK TO HIS ROOM WITH THE ITEMS REQUESTED THE PATIENT SEEMED CONFUSED ON WHY I WAS BRINGING THEM AND ASKED ME IF THEY WERE GOING TO KEEP HIS OXYGEN LEVEL UP. I TOLD HIM THAT HE REQUESTED THE COKE AND COFFEE BECAUSE HE SAID IT WOULD RAISE HIS BLOOD PRESSURE. THE PATIENT VERBALIZED UNDERSTANDING. WILL CONTINUE TO MONITOR.
[2018-04-10 04:08] VITALS: BP 136/80
[2018-04-10 04:24] VITALS: BP 136/78
--- NOTE | 2018-04-10 07:32 | NUR ---
PT AAOX4 RESP EVEN AND NONLABORED, NO SIGNS OF DISTRESS NOTED, PT STATES "ITS TIME FOR MY PAIN SHOT" I EXPLAINED TO THE PT AT I CHECKED HIS EMAR AND THE NEXT DOSE IS NOT DUE UNTIL 807. CL IN REACH
[2018-04-10 08:00] VITALS: BP 122/79
--- NOTE | 2018-04-10 08:20 | NUR ---
PT WOKE UP YELLING OUT THE DOOR "I WANT MY PAIN SHOT IT WAS TIME FOR IT 2 HOURS AGO" I EXPRESSED TO THE PT THAT IT WAS JUST NOW TIME FOR HIM TO HAVE ANOTHER DOSE AND THAT I WOULD GET IT FOR HIM HE REFUSES TO LET AIDE TAKE HIS VITAL SIGNS, I EXPRESSED TO THE PT THAT I HAD TO CHECK HIS BLOOD PRESSURE GIVING HIM PAIN MEDS PT LET ME TAKE HIS BLOOD PRESSURE BEFORE GIVING HIM HIS PAIN MEDS AND I WILL WRITE ON THE BOARD WHEN HE CAN HAVE HIS NEXT DOSE CL IN REACH
--- NOTE | 2018-04-10 15:00 | NUR ---
A PT FAMILY IS WALLKING BACK TO THIS UNIT FOR ANOTHER ROOM AND STATES "MR WARE IS ASKING HER TO GIVE HIM SOME PAIN MEDS" THE PT HAS STILL NOT COME BACK TO FLOOR YET
--- NOTE | 2018-04-10 15:41 | NUR ---
RESTING QUIETLY WITH EYES CLOSED. RESP EVEN,NONLABORED. CONTACT ISOLATION PRECAUTIONS IN PLACE.
--- NOTE | 2018-04-10 17:38 | NUR ---
PT COMING OUT OF ROOM WALKING OUT STATING "HE IS LEAVING" HOUSE SUP AND SECURITY CALLED TO L0CATE PT, PT FOUND AND EXCORATED BACK TO ROOM, CL IN REACH
[2018-04-10 19:45] VITALS: BP 137/92
--- NOTE | 2018-04-10 19:49 | NUR ---
PATIENT SITTING UP IN BED WITH NO S/S OF DISTRESS. BED IN LOWEST POSITION AND CALL LIGHT WITHIN REACH. PATIENT DENIES NEEDS AT THIS TIME. ENCOURAGED THE PATIENT TO CALL IF HE HAS NEEDS. WILL CONTINUE TO MONITOR.
--- NOTE | 2018-04-10 20:15 | NUR ---
AUTO WHEEL ALIGNMENT SPECIALIST AT BEDSIDE AND CHANGED PATIENT'S LINENS PER HIS REQUEST
--- NOTE | 2018-04-10 22:02 | NUR ---
PATIENT RESTING IN BED WITH NO S/S OF DISTRESS. PATIENT REQUESTED DILAUDID AND ATIVAN . ADMINISTERED MEDS PER ORDERS WITH BINH GARRIDO WITNESS.
--- NOTE | 2018-04-10 22:02 | NUR ---
PATIENT RESTING IN BED WITH NO S/S OF DISTRESS AND REQUESTED DILAUDID AND ATIVAN. ADMINISTERED MEDS WITH BINH GARRIDO A WITNESS.
--- NOTE | 2018-04-10 22:20 | NUR ---
REDRESSED PATIENT'S WOUND PER ORDERS BECAUSE DRESSING FELL OFF
--- NOTE | 2018-04-10 23:14 | NUR ---
PATIENT RESTING IN BED WITH EYES CLOSED AND NO S/S OF DISTRESS. WILL CONTINUE TO MONITOR
[2018-04-10 23:55] VITALS: BP 119/76
--- NOTE | 2018-04-11 00:26 | NUR ---
PATIENT REQUESTED DILAUDID. I EXPLAINED TO THE PATIENT THAT HE HAD HIS DILAUDID, ATIVAN, AND LIBRIUM AT 2200. PATIENT STATED I NEVER GAVE HIM HIS "PAIN SHOT". I ATTEMPTED TO EXPLAIN TO THE PATIENT AGAIN AND HE IS TALKING OVER ME. THE PATIENT STATED HE WANTS THE HOUSE NURSE. I TOLD THE PATIENT SHE CAN BE REACHED AT EXT 1441.
--- NOTE | 2018-04-11 00:28 | NUR ---
PATIENT CONTINUES TO YELL OUT OF THE ROOM TELLING TO ME "GET OFF YOUR ASS AND GIVE ME MY PAIN SHOT". I EXPLAINED TO THE PATIENT AGAIN THAT HIS PAIN MEDICATION IS NOT DUE. PATIENT IS GETTING DRESSED AND TOLD ME THAT HE IS TRANS TO [facility]. I EXPLAINED TO THE PATIENT THAT HE IS ALREADY AT [facility]. HE SAID THEN I WILL GO TO THE HOSPITAL DR[facility]OLDM[facility] IS OUT OF. I AGAIN EXPLAINED TO THE PATIENT THAT HE IS ALREADY AT [facility] WHICH IS WHERE DR. GOLDMAN IS OUT OF.
--- NOTE | 2018-04-11 00:28 | NUR ---
PATIENT STATED THE HOUSE NURSE WAS NOT ANSWERING THE PHONE AND THAT HE WOULD WALK OUT IF SOMEONE DID NOT GET IN THERE TO SEE HIM. I TOLD THE PATIENT THAT THE BOIL OFF WORKER WOULD BE DOWN SOON SHE CAN AND THAT IF HE WOULD LIKE TO LEAVE I WOULD GET HIS AMA PAPERWORK FOR HIM. PATIENT REFUSED AMA PAPERWORK AND SAID THAT HE WANTS TO TRANSFER TO ANOTHER FACILITY.
--- NOTE | 2018-04-11 00:30 | NUR ---
SPOKE WITH BAKARI IN REGARDS TO COMING DOWN TO SPEAK WITH THE PATIENT
--- NOTE | 2018-04-11 00:34 | NUR ---
PATIENT CONTINUES TO BE BELLIGERENT YELLING OUT OF THE ROOM AT ME. CALLED [employer] MESSAGE BROKER DEVELOPER AGAIN AND SECURITY.
--- NOTE | 2018-04-11 00:40 | NUR ---
PATIENT PULLED DRESSING OFF OF HIS RIGHT LOWER LEG AND STATED IF YOU DON'T GET THIS IV OUT OF MY NECK I WILL PULL IT OUT. I EXPLAINED THE PATIENT PATIENT THAT HIS CENTRAL LINE CANNOT JUST BE PULLED OUT AND IF HE PULLS IT OUT WE WILL NO LONGER BE ABLE TO ADMINISTERED IS IV PAIN MEDS. PATIENT TOOK HIS HAND OFF OF HIS IV TUBING.
--- NOTE | 2018-04-11 01:11 | NUR ---
PATIENT RESTING WITH EYES CLOSED AND NO S/S OF DISTRESS. WILL CONTINUE TO MONITOR
--- NOTE | 2018-04-11 02:00 | NUR ---
PATIENT RESTING IN BED WITH EYES CLOSED AND NO S/S OF DISTRESS. WILL CONTINUE TO MONITOR
[2018-04-11 03:55] VITALS: BP 133/85
--- NOTE | 2018-04-11 05:55 | NUR ---
WOKE PATIENT TO DRAW HIS BLOOD. PATIENT STATED, WITH SLURRED SPEECH, "I NEED MY PAIN SHOT". I TOLD THE PATIENT THAT HIS DILAUDID IS NOT DUE UNTIL 7:30AM WHICH I HAD PREVIOUSLY DISCUSSED WITH HIM. THE PATIENT STATED "HERE WE GO AGAIN" AND CLOSED HIS EYES.
[2018-04-11 07:09] LABS: ANION GAP 12.7 mmol/L (8-16); CALCIUM 8.9 mg/dL (8.5-10.1); CARBON DIOXIDE 28.7 mmol/L (21.0-32.0); CREATININE - SERUM 1.1 mg/dL (0.6-1.3); POTASSIUM - SERUM 4.4 mmol/L (3.5-5.1)
[2018-04-11 07:31] LABS: BASOPHILS 0.8 % (0-2); EOSINOPHILS 4.2 % (0-7); HEMATOCRIT 33.8 % (42.0-54.0); HEMOGLOBIN 11.1 g/dL (13.5-17.5); LYMPHOCYTES 14.5 % (15-50); MCH 28.8 pg (26.0-34.0); MCHC 32.8 g/dL (31.0-37.0); MCV 87.8 fL (80.0-100.0); MEAN PLATELET VOLUME 10.9 fL (7.4-10.4); MONOCYTES 10.1 % (2-11); NEUTROPHILS 67.4 % (40-80); PLATELET COUNT 465 10x3/uL (130-400); RBC 3.85 10x6/uL (4.20-6.10); RDW 15.3 % (11.5-14.5); WBC 14.4 10x3/uL (4.8-10.8)
--- NOTE | 2018-04-11 08:00 | NUR ---
RN ROUNDING DONE WITH PATIENT IN CONTACT ISOLATION. PATIENT IS RESTING WITH EYES CLOSED, HE HAD ASKED EARILER AT SHIFT CHANGE FOR PAIN MEDICATION, IT WAS NOT DUE TILL 729. HE IS ASLEEP AT THIS TIME. WILL RE-EVALUATE WHEN AWAKE.
[2018-04-11 08:35] VITALS: BP 152/90
[2018-04-11 11:38] VITALS: BP 150/87
--- NOTE | 2018-04-11 12:30 | NUR ---
PATIENT RESTING. C/O PAIN AND ACCUSES THAT PAIN MEDS ARE NOT GIVEN THOUGH THEY HAVE BEEN WITNESSED GIVEN. DRESSING TO RLE CHANGED WITH WET TO DRY GAUZE, CURLEX AND MEDIPORE TAPE. DATED AND INITIALLED. PATIENT TOLERATED WELL WITH MINIMAL COMPLAINTS OF PAIN. WAS SLEEPING DURING MOST OF PROCEDURE.
[2018-04-11 20:00] VITALS: BP 117/65
--- NOTE | 2018-04-11 20:10 | NUR ---
RESPONDED TO PATIENT'S IV PUMP ALARMING. FIXED PUMP. PATIENT RESTING WITH EYES CLOSED AND NO S/S OF DISTRESS. BED IN LOWEST POSITION AND CALL LIGHT WITHIN REACH. WILL CONTINUE TO MONITOR.
[2018-04-12] VITALS (8 sets, daily range): BP systolic 93–132; BP diastolic 53–89
--- NOTE | 2018-04-12 02:02 | NUR ---
PATIENT RESTING IN BED WITH EYES CLOSED AND NO S/S OF DISTRESS. WILL CONTINUE TO MONITOR.
[2018-04-12 06:57] LABS: BASOPHILS 0.2 % (0-2); EOSINOPHILS 2.2 % (0-7); HEMATOCRIT 33.4 % (42.0-54.0); IMMATURE GRANULOCYTES 1.1 % (0-5); LYMPHOCYTES 11.1 % (15-50); MCHC 32.9 g/dL (31.0-37.0); MCV 88.1 fL (80.0-100.0); MEAN PLATELET VOLUME 10.8 fL (7.4-10.4); MONOCYTES 7.8 % (2-11); NEUTROPHILS 77.6 % (40-80); PLATELET COUNT 460 10x3/uL (130-400); RBC 3.79 10x6/uL (4.20-6.10); RDW 15.7 % (11.5-14.5); WBC 17.9 10x3/uL (4.8-10.8)
[2018-04-12 07:32] LABS: ANION GAP 14.5 mmol/L (8-16); CALCIUM 8.4 mg/dL (8.5-10.1); CARBON DIOXIDE 24.4 mmol/L (21.0-32.0); CREATININE - SERUM 1.1 mg/dL (0.6-1.3); POTASSIUM - SERUM 3.9 mmol/L (3.5-5.1)
--- NOTE | 2018-04-12 08:26 | NUR ---
PT HERE FOR CELLULITIS OF RIGHT LOWER LEG PT DENIES NEEDS AT THIS TIME WILL CONTINUE TO MONITOR
--- NOTE | 2018-04-12 14:05 | NUR ---
Reviewed chart Cardiac diet with 100,50,0% intake of meals yesterday Attempted to visit with pt. Upon entering the room the pt stated he is getting plenty to eat. Offered to answer any nutrition related questions and pt has none. RD following
--- NOTE | 2018-04-12 14:27 | NUR ---
PATIENT LYING IN BED SLEEPING. NO SIGNS OF DISTRESS.
--- NOTE | 2018-04-12 20:20 | NUR ---
AWAKENED FOR ASSESSMENT. ORIENTED X4. RESP EVEN AND NONLABORED. NOT WEARING O2. BBS CTA. NONPROD COUGH AT TIMES. SPEECH SLIGHTLY SLURRED. DRSG NOTED TO RLE. NO EDEMA NOTED. RT SUBCLAVIAN IS SALINE LOCKED. AMBULATORY. SR ELEVATED X2. CL IN REACH.
--- NOTE | 2018-04-12 20:33 | NUR ---
CATAPRES HELD DUE TO LOW B/P 93/53. PT ASKING FOR PAIN MED BUT INFORMED THAT STAFF WOULDNT MEDICATE WITH LOW B/P. WILL CONT TO MONITOR B/P.
--- NOTE | 2018-04-12 22:00 | NUR ---
PT REQUESTING PAIN MEDS BUT UNABLE TO STAY AWAKE TO GET MORE.
--- NOTE | 2018-04-12 22:38 | NUR ---
PT AWAKE, PT INST ON OBTAINING UA, PT PASSIVE ABOUT INST, INFORMED PT THAT IF HE NEEDED ANY ASSISTANCE, TO USE CALL LIGHT
--- NOTE | 2018-04-12 23:20 | NUR ---
HAS BEEN ASLEEP BUT WOKE UP AND ASKED FOR PAIN MED AGAIN. INFORMED PT THAT PAIN MED HAD BEEN PULLED FOR HIM BUT EVERY TIME STAFF WENT IN TO GIVE IT, THAT HE WAS SLEEPING. B/P RECHECKED 105/57. MEDICATED WITH PERCOCET ORDERED. CL IN REACH.
--- NOTE | 2018-04-13 01:00 | NUR ---
LYING IN BED WATCHING TV AND EATING SNACKS. NO DISTRESS. CL IN REACH.
[2018-04-13 04:30] VITALS: BP 109/68
--- NOTE | 2018-04-13 04:40 | NUR ---
MEDICATED WITH PERCOCET FOR C/O RLE PAIN. CL IN REACH.
--- NOTE | 2018-04-13 05:46 | NUR ---
RESTING QUIETLY. RESP EVEN AND NONLABORED. NO DISTRESS. CL IN REACH.
[2018-04-13 06:03] LABS: BASOPHILS 0.3 % (0-2); EOSINOPHILS 3.2 % (0-7); HEMATOCRIT 33.6 % (42.0-54.0); HEMOGLOBIN 11.1 g/dL (13.5-17.5); IMMATURE GRANULOCYTES 3.3 % (0-5); LYMPHOCYTES 19.5 % (15-50); MCH 29.1 pg (26.0-34.0); MCV 88.2 fL (80.0-100.0); MEAN PLATELET VOLUME 10.6 fL (7.4-10.4); MONOCYTES 10.6 % (2-11); NEUTROPHILS 63.1 % (40-80); PLATELET COUNT 488 10x3/uL (130-400); RBC 3.81 10x6/uL (4.20-6.10); RDW 15.9 % (11.5-14.5)
[2018-04-13 06:07] LABS: WBC 12.6 10x3/uL (4.8-10.8)
[2018-04-13 06:32] LABS: C-REACTIVE PROTEIN 3.3 mg/dL (0.0-0.9); CALCIUM 8.2 mg/dL (8.5-10.1); CARBON DIOXIDE 23.1 mmol/L (21.0-32.0); CREATININE - SERUM 1.1 mg/dL (0.6-1.3)
[2018-04-13 06:34] LABS: POTASSIUM - SERUM 5.1 mmol/L (3.5-5.1)
--- NOTE | 2018-04-13 07:35 | NUR ---
PT RESTING QUIETLY. CL IN REACH. NO SIGNS OF DISTRESS OR PAIN. BED IN LOW POSITION. SIDE RAILS X2. RESP EVEN AND UNLABORED. BREAKFAST IN ROOM. WCTM
[2018-04-13 09:50] VITALS: BP 125/70
--- NOTE | 2018-04-13 12:15 | NUR ---
PT LYING IN BED. CL IN REACH. PT DENIES NEEDS AT THIS TIME
--- NOTE | 2018-04-13 19:00 | NUR ---
THE PATIENT WAS WATCHING TELEVISION WHEN STAFF ENTERED HIS ROOM. BED IN LO WPOSITION WITH SIDERAILS X2 AND CALL LIGHT WITHIN REACH. THE PATIENT DEMONSTRATES APPROPRIATE USE OF A CALL LIGHT. THE PATIENT HAS NO QUESTIONS AT THIS TIME.
[2018-04-13 20:00] VITALS: BP 134/91
[2018-04-14] VITALS: BP 137/83
--- NOTE | 2018-04-14 02:31 | NUR ---
THE PATIENT APPEARS TO BE SLEEPING COMFORTABLY.
[2018-04-14 04:00] VITALS: BP 119/76
--- NOTE | 2018-04-14 07:40 | NUR ---
PT AAOX4 RESP EVEN AND NONLABORED, REQUESTING SOME PAIN MEDS EXPRESSED TO PT I WOULD CHECK EMAR AND SEE IF IT WAS TIME TO GIVE PAIN MEDS CL IN REACH
[2018-04-14 07:44] LABS: BASOPHILS 0.3 % (0-2); EOSINOPHILS 1.6 % (0-7); HEMATOCRIT 33.3 % (42.0-54.0); HEMOGLOBIN 10.9 g/dL (13.5-17.5); IMMATURE GRANULOCYTES 2.9 % (0-5); LYMPHOCYTES 20.3 % (15-50); MCHC 32.7 g/dL (31.0-37.0); MCV 88.6 fL (80.0-100.0); MEAN PLATELET VOLUME 10.6 fL (7.4-10.4); MONOCYTES 9.2 % (2-11); NEUTROPHILS 65.7 % (40-80); PLATELET COUNT 453 10x3/uL (130-400); RBC 3.76 10x6/uL (4.20-6.10); RDW 15.9 % (11.5-14.5); WBC 14.3 10x3/uL (4.8-10.8)
[2018-04-14 08:06] LABS: ANION GAP 14.1 mmol/L (8-16); CALCIUM 8.5 mg/dL (8.5-10.1); CREATININE - SERUM 1.3 mg/dL (0.6-1.3); POTASSIUM - SERUM 5.1 mmol/L (3.5-5.1)
--- NOTE | 2018-04-14 09:00 | NUR ---
RESTING QUIETLY IN BED. DENIES ANY NEEDS AT THIS TIME.
[2018-04-14 10:06] VITALS: BP 142/80
[2018-04-14] MEDS ORDERED: KEFLEX500 MG PO (10:32)
[2018-04-14] MEDS ORDERED: DAKIN'S 0.25%480 ML TOPICAL (10:32)
--- NOTE | 2018-04-14 12:03 | MORECARE ---
CASE MANAGEMENT DISCHARGE SUMMARY PATIENT: KELLI WARE UNIT: [id number] ADM DATE: 04/02/18 AGE: 63 : 59 SEX: M ROOM/BED: D.1204 AUTHOR: ERICADOC PHYSICIAN: REFERRING PHYSICIAN: JANE NELSON MD DATE OF SERVICE: 04/14/18 Discharge Plan Patient Name: KELLI WARE Facility: [facility]:[place] : 1955 Planned Disposition: Anticipated Discharge Date: Discharge Date: Expected LOS: Initial Reviewer: [email or web address] Initial Review Date: 04/02/2018 Generated: 04/14/18 1:03 pm Comments DCP- Discharge Planning Updated by [email or web address]: Kateryna Hinson on 04/14/18 10:[address] Patient Name: KELLI WARE Admission Status: ER Accout number: [id number] Admission Date: 04-02-2018 : 1955 Admission Diagnosis:CELLULITIS OF RIGHT LOWER LIMB Attending: JANE NELSON Current LOS: 12 Anticipated DC Date: Planned Disposition: Primary Insurance: MEDICAID [place] Discharge Planning Comments: CM PROVIDED PATIENT WITH 2 BUS FAIRS ON CHART WHEN DC'D. CM CALLED [employer] TO MAKE SURE HE HAD SLOTS TO GET HIS MEDICAITON, ZULY AT DRUG STORE CONFIRMED THAT HE DOES HAVE SLOTS. [employer] PHONE NUMBER IS [phone]. CM WILL FOLLOW AND ASSIST NEEDED WITH DC PLANNING/NEEDS. Gas Controller: Kateryna Hinson DCP- Discharge Planning Updated by [email or web address]: Kateryna Hinson on 04/08/18 11:[address] Patient Name: KELLI WARE Admission Status: ER Accout number: [id number] Admission Date: 04-02-2018 : 1955 Admission Diagnosis:CELLULITIS OF RIGHT LOWER LIMB Attending: JANE NELSON Current LOS: 6 Anticipated DC Date: Planned Disposition: Primary Insurance: [place]ID [place] Discharge Planning Comments: CM SPOKE WITH PATIENT OVER PHONE ABOUT DC PLANNING. PATIENT STATES IS HOMELESS AND PLANS TO DISCHARGE TO HIS ORIGINAL ENVIRONMENT. STATES ALREADY KNOWS THE HOMELESS SHELTERS AND DOESN'T NEED MORE INFORMATION ON THEM. CM SPOKE TO NURSE AND WOUND VAC IS BEING REMOVED TODAY. CM WILL FOLLOW AND ASSIST NEEDED WITH DC PLANNING/NEEDS. Gas Controller: Kateryna Hinson DCPIA - Discharge Planning Initial Assessment Updated by [email or web address]: Kateryna Hinson on 04/08/18 12:34 pm * Is the patient Alert and Oriented? Yes * PCP DANIELA * Pharmacy [facility] [address] * Preadmission Environment Homeless * ADLs Independent * Equipment None * List name and contact numbers for known caregivers / representatives who currently or will assist patient after discharge: FOREIGN CHINER, FRIEND, * Community resources currently utilized None * Has this patient been hospitalized within the prior 30 days at any hospital? No Last DP export: 04/08/18 11:42 a Patient Name: KELLI WARE Page [phone] at 1203 All edits/amendments must be made on the electronic document DICTATION DATE: 04/14/181202 HOT BLAST WORKER: MARIAN 04/14/18 1203 RPT#: [id number] DC DATE: STATUS: ADM IN [facility] [address] [place] [address] END OF REPORT
[2018-04-14 12:19] VITALS: BP 135/91
--- NOTE | 2018-04-14 14:28 | MORECARE ---
CASE MANAGEMENT DISCHARGE SUMMARY PATIENT: KELLI WARE UNIT: [id number] ADM DATE: 04/02/18 AGE: 63 : 59 SEX: M ROOM/BED: D.1204 AUTHOR: ERICADOC PHYSICIAN: REFERRING PHYSICIAN: JANE NELSON MD DATE OF SERVICE: 04/14/18 Discharge Plan Patient Name: KELLI WARE Facility: [facility]:[place] : 1955 Planned Disposition: Anticipated Discharge Date: Discharge Date: Expected LOS: Initial Reviewer: [email or web address] Initial Review Date: 04/02/2018 Generated: 04/14/18 3:27 pm Comments DCP- Discharge Planning Updated by [email or web address]: Kateryna Hinson on 04/14/18 1:[address] Patient Name: KELLI WARE Admission Status: ER Accout number: [id number] Admission Date: 04-02-2018 : 1955 Admission Diagnosis:CELLULITIS OF RIGHT LOWER LIMB Attending: JANE NELSON Current LOS: 12 Anticipated DC Date: Planned Disposition: Primary Insurance: MEDICAID [place] Discharge Planning Comments: CM PROVIDED PATIENT WITH 2 BUS FAIRS ON CHART WHEN DC'D. CM CALLED [employer] TO MAKE SURE HE HAD SLOTS TO GET HIS MEDICAITONZULY AT DRUG STORE CONFIRMED THAT HE DOES HAVE SLOTS. [employer] PHONE NUMBER IS [phone]. CM WILL FOLLOW AND ASSIST NEEDED WITH DC PLANNING/NEEDS. Print Binding And Finishing Worker: Kateryna Hinson Appended by Kateryna Hinson on 04/14/2018 14:26 DECORATING AND ASSEMBLY SUPERVISOR: HAD MEDS CHANGED TO [facility] [address] [facility], SPOKE WITH AD AND SHE WILL CONTACT [employer] TO GET PRESCRIPTIONS TO [facility]. DCP- Discharge Planning Updated by [email or web address]: Kateryna Hinson on 04/08/18 11:[address] Patient Name: KELLI WARE Admission Status: ER Accout number: [id number] Admission Date: 04-02-2018 : 1955 Admission Diagnosis:CELLULITIS OF RIGHT LOWER LIMB Attending: JANE NELSON Current LOS: 6 Anticipated DC Date: Planned Disposition: Primary Insurance: MEDICAID [place] Discharge Planning Comments: CM SPOKE WITH PATIENT OVER PHONE ABOUT DC PLANNING. PATIENT STATES IS HOMELESS AND PLANS TO DISCHARGE TO HIS ORIGINAL ENVIRONMENT. STATES ALREADY KNOWS THE HOMELESS SHELTERS AND DOESN'T NEED MORE INFORMATION ON THEM. CM SPOKE TO NURSE AND WOUND VAC IS BEING REMOVED TODAY. CM WILL FOLLOW AND ASSIST NEEDED WITH DC PLANNING/NEEDS. Print Binding And Finishing Worker: Kateryna Hinson DCPIA - Discharge Planning Initial Assessment Updated by [email or web address]: Katerynakenton Hinson on 04/08/18 12:34 pm * Is the patient Alert and Oriented? Yes * PCP DANIELA * Pharmacy [facility] [address] * Preadmission Environment Homeless * ADLs Independent * Equipment None * List name and contact numbers for known caregivers / representatives who currently or will assist patient after discharge: FOREIGN SOLORZANO, FRIEND, * Community resources currently utilized None * Has this patient been hospitalized within the prior 30 days at any hospital? No Last DP export: 04/14/18 11:03 a Patient Name: KELLI WARE Page [id number] at 1428 All edits/amendments must be made on the electronic document DICTATION DATE: 04/14/181426 PRODUCT ADVISOR: MARIAN 04/14/18 142 RPT#: [id number] DC DATE: STATUS: ADM IN [facility] [address] [place] [address] END OF REPORT
--- NOTE | 2018-04-14 14:32 | NUR ---
R TLSC REMOVED. CATHETER TIP INTACT. DRESSING APPLIED AFTER HOLDING PRESSURE. INSTRUCTED TO LAY IN BED FOR AT LEAST 15 MINUTES.
--- NOTE | 2018-04-14 14:53 | NUR ---
PT DC AT THIS TIME INSTURCTONS GIVEN PT VERABLIZES UNDERSTANDING, R CVL REMOVED PER RN PT LEAVING AMBULATING SCRIPT GIVEN TO HIM LEAVING IN STABLE CONDITION
--- NOTE | 2018-04-14 15:25 | MORECARE ---
CASE MANAGEMENT DISCHARGE SUMMARY PATIENT: KELLI WARE UNIT: [id number] ADM DATE: 04/02/18 AGE: 63 : 59 SEX: M ROOM/BED: D.1204 AUTHOR: ERICADOC PHYSICIAN: REFERRING PHYSICIAN: JANE NELSON MD DATE OF SERVICE: 04/14/18 Discharge Plan Patient Name: KELLI WARE Facility: [facility]:[place] : 1955 Planned Disposition: Anticipated Discharge Date: Discharge Date: 04/14/2018 Expected LOS: Initial Reviewer: [email or web address] Initial Review Date: 04/02/2018 Generated: 04/14/18 4:25 pm Comments DCP- Discharge Planning Updated by [email or web address]: Kateryna Hinson on 04/14/18 1:[address] Patient Name: KELLI WARE Admission Status: ER Accout number: [id number] Admission Date: 04-02-2018 : 1955 Admission Diagnosis:CELLULITIS OF RIGHT LOWER LIMB Attending: JANE NELSON Current LOS: 12 Anticipated DC Date: Planned Disposition: Primary Insurance: MEDICAID [place] Discharge Planning Comments: CM PROVIDED PATIENT WITH 2 BUS FAIRS ON CHART WHEN DC'D. CM CALLED [employer] TO MAKE SURE HE HAD SLOTS TO GET HIS MEDICAITON, ZULY AT DRUG STORE CONFIRMED THAT HE DOES HAVE SLOTS. [employer] PHONE NUMBER IS [phone]. CM WILL FOLLOW AND ASSIST NEEDED WITH DC PLANNING/NEEDS. Top Precipitator Operator: Kateryna Hinson Appended by Kateryna Hinson on 04/14/2018 14:26 PRODUCT PICKER: HAD MEDS CHANGED TO [facility] [address] [facility], SPOKE WITH AD AND SHE WILL CONTACT [employer] TO GET PRESCRIPTIONS TO [facility]. DCP- Discharge Planning Updated by [id number]: Kateryna Hinson on 04/08/18 11:[address] Patient Name: KELLI WARE Admission Status: ER Accout number: [id number] Admission Date: 04-02-2018 : 1955 Admission Diagnosis:CELLULITIS OF RIGHT LOWER LIMB Attending: JANE NELSON Current LOS: 6 Anticipated DC Date: Planned Disposition: Primary Insurance: MEDICAID [place] Discharge Planning Comments: CM SPOKE WITH PATIENT OVER PHONE ABOUT DC PLANNING. PATIENT STATES IS HOMELESS AND PLANS TO DISCHARGE TO HIS ORIGINAL ENVIRONMENT. STATES ALREADY KNOWS THE HOMELESS SHELTERS AND DOESN'T NEED MORE INFORMATION ON THEM. CM SPOKE TO NURSE AND WOUND VAC IS BEING REMOVED TODAY. CM WILL FOLLOW AND ASSIST NEEDED WITH DC PLANNING/NEEDS. Top Precipitator Operator: Kateryna Hinson DCPIA - Discharge Planning Initial Assessment Updated by [id number]: Kateryna Hinson on 04/08/18 12:34 pm * Is the patient Alert and Oriented? Yes * PCP DANIELA * Pharmacy [facility] [address] * Preadmission Environment Homeless * ADLs Independent * Equipment None * List name and contact numbers for known caregivers / representatives who currently or will assist patient after discharge: FOREIGN CHINER, FRIEND, * Community resources currently utilized None * Has this patient been hospitalized within the prior 30 days at any hospital? No Last DP export: 04/14/18 1:28 p Patient Name: KELLI WARE Page [phone] at 1525 All edits/amendments must be made on the electronic document DICTATION DATE: 04/14/18 1525 BIBLICAL STUDIES PROFESSOR: MARIAN 04/14/18 1525 RPT#: [id number] DC DATE:04/14/18 STATUS: DIS IN [facility] [address] [place] [address] END OF REPORT
== END 2018-04-14 14:55 | disposition home or self-care (01) | DRG 464 ==
LOC: EDBD 09:26 → D.ER 09:26 → D.M3 11:50 → D.EDHOLD 11:50 → D.M3 14:22
PROVIDERS: Emergency Medicine; Internal Medicine Nephrology; ADMIT Emergency Medicine
PROC: 05H533Z Insertion of Infusion Device into Right Subclavian Vein, Percutaneous Approach (ICD-10-PCS; principal; 2018-04-03)
PROC: 0JBN0ZZ Excision of Right Lower Leg Subcutaneous Tissue and Fascia, Open Approach (ICD-10-PCS; 2018-04-04)
DX: M60.061 Infective myositis, right lower leg (principal); L03.115 Cellulitis of right lower limb; F17.213 Nicotine dependence, cigarettes, with withdrawal; E87.1 Hypo-osmolality and hyponatremia; N17.9 Acute kidney failure, unspecified; D64.9 Anemia, unspecified; F10.10 Alcohol abuse, uncomplicated; F15.10 Other stimulant abuse, uncomplicated; I10 Essential (primary) hypertension; E87.6 Hypokalemia; B95.61 Methicillin susceptible Staphylococcus aureus infection as the cause of diseases classified elsewhere; B96.89 Other specified bacterial agents as the cause of diseases classified elsewhere; R91.1 Solitary pulmonary nodule; Z59.0 Homelessness

== ENCOUNTER 2018-04-15 20:48 | Emergency (ER) | payer MEDICAID ==
[~2018-04-15] VITALS: Ht 172.7 cm; Wt 75.0 kg
[~2018-04-15 20:48] MED LIST: CATAPRES0.2 MG PO; DAKIN'S 0.25%480 ML TOPICAL; KEFLEX500 MG PO; NORVASC10 MG PO; OXYCODONE-APAP1 TAB PO; ZIAC 10-6.25 MG1 TAB PO
[2018-04-15 21:08] VITALS: Ht 172.7 cm; Wt 75.0 kg
[2018-04-15 23:01] VITALS: BP 145/104
== END 2018-04-15 23:01 | disposition home or self-care (01) ==
LOC: D.ER 20:48
DX: L02.415 Cutaneous abscess of right lower limb (principal); G40.909 Epilepsy, unspecified, not intractable, without status epilepticus; I10 Essential (primary) hypertension; F17.200 Nicotine dependence, unspecified, uncomplicated

== ENCOUNTER 2018-04-24 18:36 | Emergency (ER) | payer MEDICAID ==
[~2018-04-24] VITALS: Ht 172.7 cm; Wt 77.1 kg
[2018-04-24 18:38] VITALS: Ht 172.7 cm; Wt 77.1 kg
[2018-04-24] MEDS ORDERED: CLEOCIN HCL300 MG PO (19:10)
[2018-04-24 19:26] VITALS: BP 132/82
== END 2018-04-24 19:27 | disposition home or self-care (01) ==
LOC: D.ER 18:36
DX: L02.415 Cutaneous abscess of right lower limb (principal); G40.909 Epilepsy, unspecified, not intractable, without status epilepticus; I10 Essential (primary) hypertension

== ENCOUNTER 2018-06-16 23:40 | Emergency (ER) | payer MEDICAID ==
[~2018-06-16] VITALS: Ht 172.7 cm; Wt 74.8 kg
[~2018-06-16 23:40] MED LIST changes: +CLEOCIN HCL300 MG PO
[2018-06-16 23:44] VITALS: Ht 172.7 cm; Wt 74.8 kg
[2018-06-17 00:19] LABS: BASOPHILS 0.8 % (0-2); EOSINOPHILS 2.4 % (0-7); HEMATOCRIT 36.8 % (42.0-54.0); HEMOGLOBIN 12.4 g/dL (13.5-17.5); IMMATURE GRANULOCYTES 0.3 % (0-5); LYMPHOCYTES 32.2 % (15-50); MCH 29.4 pg (26.0-34.0); MCHC 33.7 g/dL (31.0-37.0); MCV 87.2 fL (80.0-100.0); MEAN PLATELET VOLUME 11.4 fL (7.4-10.4); MONOCYTES 14.8 % (2-11); NEUTROPHILS 49.5 % (40-80); RBC 4.22 10x6/uL (4.20-6.10); RDW 14.7 % (11.5-14.5); WBC 7.8 10x3/uL (4.8-10.8)
[2018-06-17 00:25] LABS: PLATELET COUNT 325 10x3/uL (130-400)
[2018-06-17 00:37] LABS: ALKALINE PHOSPHATASE 77 U/L (46-116); ALT (SGPT) 16 U/L (10-68); AMYLASE - SERUM 83 U/L (25-115); BILIRUBIN - TOTAL 0.45 mg/dL (0.2-1.3); CALC OSMOLALITY 267 mosm/kg (275-300); CALCIUM 8.1 mg/dL (8.5-10.1); CARBON DIOXIDE 25.7 mmol/L (21.0-32.0); CHLORIDE - SERUM 99 mmol/L (98-107); CREATININE - SERUM 1.3 mg/dL (0.6-1.3); GLUCOSE 108 mg/dL (74-106); LIPASE 116 U/L (73-393); PROTEIN - SERUM 7.7 g/dL (6.4-8.2); SODIUM 132 mmol/L (136-145); TROPONIN-I < 0.017 ng/mL (0.000-0.060); UREA NITROGEN 18 mg/dL (7-18); eGFR NON AFRICAN AMERICAN 60 mL/min (90-120)
[2018-06-17] MEDS ORDERED: DICLOFENAC SODI50 MG PO (01:03)
[2018-06-17 01:22] VITALS: BP 166/132
== END 2018-06-17 01:22 | disposition home or self-care (01) ==
LOC: D.ER 23:40
PROVIDERS: Emergency Medicine
DX: K66.0 Peritoneal adhesions (postprocedural) (postinfection) (principal); I10 Essential (primary) hypertension; F17.210 Nicotine dependence, cigarettes, uncomplicated; F12.90 Cannabis use, unspecified, uncomplicated

== ENCOUNTER 2018-06-17 11:59 | Emergency (ER) | payer MEDICAID ==
[~2018-06-17] VITALS: Ht 172.7 cm; Wt 75.0 kg
[~2018-06-17 11:59] MED LIST changes: +DICLOFENAC SODI50 MG PO
[2018-06-17 12:19] VITALS: BP 177/106; Ht 172.7 cm; Wt 75.0 kg
== END 2018-06-17 15:00 | disposition left against medical advice (07) ==
LOC: D.ER 11:59
DX: K66.0 Peritoneal adhesions (postprocedural) (postinfection) (principal); I10 Essential (primary) hypertension

== ENCOUNTER 2019-09-06 15:40 | Emergency (ER) | payer MEDICAID ==
[~2019-09-06] VITALS: Ht 172.7 cm; Wt 70.5 kg
[2019-09-06 15:56] VITALS: BP 152/95; Ht 172.7 cm; Wt 70.5 kg
== END 2019-09-06 17:37 | disposition left against medical advice (07) ==
LOC: D.ER 15:40
DX: M54.9 Dorsalgia, unspecified (principal)

== ENCOUNTER 2019-10-21 18:57 | Emergency (ER) | payer MEDICAID ==
[~2019-10-21] VITALS: Ht 172.7 cm; Wt 75.0 kg
[2019-10-21 19:10] VITALS: Ht 172.7 cm; Wt 75.0 kg
[2019-10-21 20:05] LABS: BASOPHILS 0.4 % (0-2); EOSINOPHILS 1.6 % (0-7); HEMATOCRIT 39.4 % (42.0-54.0); HEMOGLOBIN 13.1 g/dL (13.5-17.5); IMMATURE GRANULOCYTES 0.4 % (0-5); LYMPHOCYTES 27.6 % (15-50); MCH 26.2 pg (26.0-34.0); MCHC 33.2 g/dL (31.0-37.0); MCV 78.8 fL (80.0-100.0); MEAN PLATELET VOLUME 10.7 fL (7.4-10.4); MONOCYTES 11.4 % (2-11); NEUTROPHILS 58.6 % (40-80); PLATELET COUNT 298 10x3/uL (130-400); RDW 19.4 % (11.5-14.5); WBC 7.6 10x3/uL (4.8-10.8)
[2019-10-21 20:37] LABS: ANION GAP 17.9 mmol/L (8-16); CALCIUM 8.9 mg/dL (8.5-10.1); CARBON DIOXIDE 21.3 mmol/L (21.0-32.0); CREATININE - SERUM 1.8 mg/dL (0.6-1.3); POTASSIUM - SERUM 4.2 mmol/L (3.5-5.1)
[2019-10-21 20:49] LABS: ALBUMIN 2.9 g/dL (3.4-5.0); BILIRUBIN - TOTAL 0.41 mg/dL (0.2-1.3); PROTEIN - SERUM 6.7 g/dL (6.4-8.2)
[2019-10-21] MEDS ORDERED: FUROSEMIDE20 MG PO (21:28)
[2019-10-21] MEDS ORDERED: POTASSIUM CHLO10 ME1 PO (21:28)
[2019-10-21 21:53] VITALS: BP 164/109
== END 2019-10-21 21:53 | disposition home or self-care (01) ==
LOC: D.ER 18:57
PROVIDERS: Emergency Medicine
DX: I11.0 Hypertensive heart disease with heart failure (principal); I50.9 Heart failure, unspecified; R06.02 Shortness of breath; Z91.19 Patient's noncompliance with other medical treatment and regimen

== ENCOUNTER 2019-12-26 01:58 | Observation (INO) | payer MEDICAID ==
[~2019-12-26] VITALS: Ht 172.7 cm; Wt 68.2 kg
[~2019-12-26 01:58] MED LIST changes: +FUROSEMIDE20 MG PO; +POTASSIUM CHLO10 ME1 PO
[2019-12-26] MEDS ORDERED: BISOPROLOL FUMAR5 MG PO (02:27)
[2019-12-26] MEDS ORDERED: NORVASC10 MG PO (02:27)
[2019-12-26 03:07] LABS: BASOPHILS 0.2 % (0-2); EOSINOPHILS 0.8 % (0-7); HEMATOCRIT 39.7 % (42.0-54.0); IMMATURE GRANULOCYTES 0.4 % (0-5); LYMPHOCYTES 19.1 % (15-50); MCH 25.8 pg (26.0-34.0); MCHC 32.7 g/dL (31.0-37.0); MCV 78.8 fL (80.0-100.0); MONOCYTES 7.8 % (2-11); NEUTROPHILS 71.7 % (40-80); PLATELET COUNT 260 10x3/uL (130-400); RBC 5.04 10x6/uL (4.20-6.10); RDW 19.8 % (11.5-14.5); WBC 8.4 10x3/uL (4.8-10.8)
[2019-12-26 03:08] LABS: CALC OSMOLALITY 264 mosm/kg (275-300); CALCIUM 8.8 mg/dL (8.5-10.1); CARBON DIOXIDE 28.1 mmol/L (21.0-32.0); CHLORIDE - SERUM 95 mmol/L (98-107); CREATININE - SERUM 1.4 mg/dL (0.6-1.3); GLUCOSE 135 mg/dL (74-106); POTASSIUM - SERUM 3.9 mmol/L (3.5-5.1); SODIUM 128 mmol/L (136-145); UREA NITROGEN 28 mg/dL (7-18); eGFR NON AFRICAN AMERICAN 54 mL/min (90-120)
[2019-12-26 03:12] LABS: APTT 34.8 SECONDS (22.8-39.4); INR 1.17 (0.85-1.17); PROTIME 14.9 SECONDS (11.6-15.0)
[2019-12-26 03:32] LABS: ALBUMIN 3.1 g/dL (3.4-5.0); ALKALINE PHOSPHATASE 104 U/L (30-120); ALT (SGPT) 29 U/L (10-68); BILIRUBIN - TOTAL 0.31 mg/dL (0.2-1.3); CKMB 4.4 U/L (0.0-3.6); CREATINE KINASE 74 UL (21-232); MAGNESIUM - SERUM 1.7 mg/dL (1.8-2.4); PROTEIN - SERUM 7.8 g/dL (6.4-8.2)
[2019-12-26 03:34] LABS: TROPONIN-I 0.075 ng/mL (0.000-0.060)
[2019-12-26 06:29] VITALS: BP 147/110
[2019-12-26 08:37] VITALS: Ht 172.7 cm; Wt 68.2 kg
--- NOTE | 2019-12-26 09:13 | NUR ---
BLOOD IN FLOOR OUTSIDE RM #10, PATIENT FOUND OOB IN CHAIR WITH J-LOOP UNHOOKED FROM IV CATH, BLOOD ON FLOOR, BED AND PATIENT. PATIENT STATES "IT JUST CAME UNDONE". J-LOOP SECURED BACK TO IV HUB, PATIENTS BED CLEANED, ALL LINEN CHANGED, PATIENT BTB ALL MONITORS ATTACHED. MEENU SHAIKH RN AT BEDSIDE TO PLACE IV WITH ULTRASOUND. ROOM MOPPED AND CLEANED BY EVS.
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
--- NOTE | 2019-12-26 10:01 | NUR ---
SPOKE TO DR MITCHELL REGARDING THE PT NOT WANTING AN IV PLACED AND HIS IV MEDICATION ORDERS. PER DR MITCHELL THE MEDICATIONS WERE ORDERED BY CARDIOLOGY AND SO WE ARE TO CONSULT WITH THEM REGARDING CHANGING THE ORDERS FROM IV TO PO. CARDIOLOGY CALLED AND SPOKE TO CHARLOTTE MARTINEZ APRN WHO GAVE NEW PO ORDERS FOR THE PT.
--- NOTE | 2019-12-26 10:15 | NUR ---
PT CALLED THE NURSES STATION STATING THAT HE IS STILL WAITING FOR HIS MEDICATION AND THAT HE IS HURTING. PT INFORMED THAT WE HAD OBTAINED NEW ORDERS HE DOES NOT HAVE AN IV AND WE ARE GOING TO IMPLEMENT THOSE ORDERS SOON THEY AR PROCESSED.
--- NOTE | 2019-12-26 10:20 | NUR ---
PT OPENED HIS DOOR, TOOK HIS V/S EQUIPMENT OFF AND STATED THAT HE WANTED AN AMA FORM HE WANTED TO LEAVE. PT ASKED WHY HE WANTED TO LEAVE, AND HE STATED THAT HE DID NOT WANT TO BE HERE. PT STATED THAT HE HAS BEEN HERE FOR HOURS BEEN STUCK OVER 20 TIMES AND THAT NO ONE WILL GIVE HIM FOR ANYTHING FOR PAIN. PT INFORMED THAT WE HAD TO CHANGE MEDICATION ORDERS D/T NO IV AND THAT WE ARE GOING TO GIVE HIM MEDICATION AND THAT HE HAD PAIN MEDICATION WHEN HE GOT HERE AND THAT HE CURRENTLY HAS A NITRO PATCH ON HIS CHEST TO TRY TO HELP WITH HIS PAIN. PT STATED THAT HE DOESNT WANT THAT AND HE JUST WANTS TO LEAVE BECAUSE NO ONE WILL HELP. PT GIVEN AMA FORM.
== END 2019-12-26 10:20 | disposition left against medical advice (07) ==
LOC: D.ER 01:58 → D.EDHOLD 06:50 → OBSVTIME 06:50 → D.EDHOLD 10:20
PROVIDERS: Family Medicine; ADMIT Family Medicine; ATTEND Family Medicine
DX: F15.10 Other stimulant abuse, uncomplicated (principal); F17.203 Nicotine dependence unspecified, with withdrawal; I11.0 Hypertensive heart disease with heart failure; I50.33 Acute on chronic diastolic (congestive) heart failure; R77.8 Other specified abnormalities of plasma proteins; Z53.29 Procedure and treatment not carried out because of patient's decision for other reasons

== ENCOUNTER 2020-07-12 09:27 | Inpatient (IN) | payer MEDICAID ==
[~2020-07-12] VITALS: Ht 172.7 cm; Wt 72.7 kg
[~2020-07-12 09:27] MED LIST changes: +BISOPROLOL FUMAR5 MG PO; +CATAPRES0.1 MG; +LISINOPRIL10 MG PO
[2020-07-12 09:51] LABS: BASOPHILS 0.1 % (0-2); EOSINOPHILS 0.1 % (0-7); HEMOGLOBIN 9.6 g/dL (13.5-17.5); IMMATURE GRANULOCYTES 0.3 % (0-5); LYMPHOCYTE ABS# 0.72 10x3/uL (1.32-3.57); LYMPHOCYTES 7.1 % (15-50); MCH 22.9 pg (26.0-34.0); MCV 71.4 fL (80.0-100.0); MEAN PLATELET VOLUME 10.2 fL (7.4-10.4); MONOCYTES 12.9 % (2-11); NEUTROPHIL ABS# 8.06 10x3/uL (1.78-5.38); NEUTROPHILS 79.5 % (40-80); RDW 18.2 % (11.5-14.5); WBC 10.1 10x3/uL (4.8-10.8)
[2020-07-12 09:58] LABS: PLATELET COUNT 333 10x3/uL (130-400)
[2020-07-12 10:00] LABS: ANION GAP 15.9 mmol/L (8-16); CALCIUM 8.4 mg/dL (8.5-10.1); CARBON DIOXIDE 20.7 mmol/L (21.0-32.0); POTASSIUM - SERUM 4.6 mmol/L (3.5-5.1)
[2020-07-12 10:21] LABS: BILIRUBIN - TOTAL 0.66 mg/dL (0.2-1.3); PROTEIN - SERUM 6.9 g/dL (6.4-8.2)
[2020-07-12 10:38] LABS: TROPONIN-I 0.095 ng/mL (0.000-0.060)
--- NOTE | 2020-07-12 10:39 | NUR ---
CRITICAL LAB: [facility] 0.095 DR HOYT AND PRIMARY RN NOTIFIED
[2020-07-12 12:34] VITALS: BP 185/130
[2020-07-12 15:26] VITALS: BP 168/118; Ht 172.7 cm; Wt 72.7 kg
[2020-07-12 15:30] LABS: % SATURATION 2 % (15-55); IRON 14 ug/dl (35-150); TOTAL IRON BIND CAPACITY 553 ug/dl (260-445); UNSAT IRON BIND CAPACITY 539 ug/dl (150-375)
--- NOTE | 2020-07-12 17:03 | NUR ---
PT WITH COMPLAINTS OF PAIN ALL OVER BUT WORSE IN ABDOMEN. STATES FROM [place]. ASKING IF WE ARE GOING TO TREAT ANYTHING OR ELSE HE WILL JUST GO HOME. TYLENOL GIVEN PRIOR WITH [facility]. STATES HE HAS BEEN TREATING PAIN WITH "[facility]" AND CAN JUST GO HOME AND TAKE SOMETHING. MOST OF COMPLAINTS FROM ABDOMEN PAIN WHICH ALSO CAUSED HIS PASSING OUT SYMPTOMS FROM PAIN LEVEL.
--- NOTE | 2020-07-12 20:00 | NUR ---
PT REQUESTING TO LEAVE. PT STATES HE WANTS A PRESCRIPTION FOR PAIN MEDICATIONS AND BLOOD PRESSURE MEDICATIONS BEFORE HE LEAVES. CHARGE NURSE BIJAL NOTIFIED AND SHE TALKED TO THE PATIENT. PT STILL WANTS TO LEAVE. MISSILE FACILITIES REPAIRER ERICA NOTIFIED, [employer]ATE REFERRAL AND INFORMATION AIDE FOR ISABEL HASKINS NOTIFIED. NO PRESCRIPTIONS TO BE GIVEN TO PT. PT WOULD NEED TO STAY TO GET DISCHARGED APPROPRIATELY AND PT REFUSED. LEFT EJ REMOVED AND BANDAGE APPLIED. PT WAS NOT WEARING TELEMETRY. AMA FORM SIGNED BY PT.
== END 2020-07-12 21:06 | disposition left against medical advice (07) | DRG 291 ==
LOC: D.ER 09:27 → D.M2 11:09
PROVIDERS: Emergency Medicine; Family Medicine; ADMIT Family Medicine; ATTEND Family Medicine
DX: I13.0 Hypertensive heart and chronic kidney disease with heart failure and stage 1 through stage 4 chronic kidney disease, or unspecified chronic kidney disease (principal); I50.23 Acute on chronic systolic (congestive) heart failure; N17.9 Acute kidney failure, unspecified; E87.1 Hypo-osmolality and hyponatremia; N18.9 Chronic kidney disease, unspecified; B19.20 Unspecified viral hepatitis C without hepatic coma; G40.909 Epilepsy, unspecified, not intractable, without status epilepticus; K21.9 Gastro-esophageal reflux disease without esophagitis; M19.90 Unspecified osteoarthritis, unspecified site; D63.1 Anemia in chronic kidney disease; I99.8 Other disorder of circulatory system; F15.10 Other stimulant abuse, uncomplicated; F12.10 Cannabis abuse, uncomplicated; F10.10 Alcohol abuse, uncomplicated